=== PATIENT | female | born 1965 | race Caucasian/White ===

== ENCOUNTER → 2017-10-31 20:08 | Outpatient (REF) | payer BC, SELFPAY | LOC: LAB 20:08 | PROVIDERS: Visit Provider Nurse Practitioner Family | DX: J02.9 Acute pharyngitis, unspecified (principal) ==

== ENCOUNTER → 2019-07-02 16:52 | Outpatient (CLI) | payer BC, SELFPAY ==
--- NOTE | 2019-07-02 17:00 | MM_ITS ---
PROCEDURE: MM DIG SCREENING MAMM BI W/CAD CLINICAL INDICATION: SCREENING There is a history of breast cancer patient's paternal aunt diagnosed at age 40. COMPARISON: [facility] DIGITAL MAMM-SCREEN BILATERAL from 08/15/2011 [facility] DIG MAMM-SCREEN BRIAN from 01/18/2013 [facility] DIG MAMM-SCREEN BRIAN from 02/01/2014 TECHNIQUE: Standard CC and MLO images were obtained. Luther images were performed. FINDINGS: Moderate diffuse heterogenic fibroglandular densities are seen in both breasts somewhat lessening the sensitivity of mammography. Luther images were reviewed and there is no suspicious abnormality seen. There are no suspicious microcalcifications. IMPRESSION: Moderate heterogenic breast density with no suspicious lesions seen BI-RAD Category: 1 Negative FOLLOW-UP: (A letter has been sent to the patient regarding results of the study.) Dictated by: Dr. Eliud Wolfe MD 07/06/2019 14:[address] Eliud Wolfe MD in [place] 07/06/2019 14:17
== END ==
PROVIDERS: PCP Family Medicine; Visit Provider Family Medicine
DX: Z12.31 Encounter for screening mammogram for malignant neoplasm of breast (principal)
CPT/HCPCS: 77063; 77067

== ENCOUNTER → 2020-06-30 12:09 | Outpatient (CLI) | payer BC, SELFPAY ==
--- NOTE | 2020-06-30 12:14 | XR_ITS ---
PROCEDURE: XR CHEST 2V CLINICAL HISTORY: SYNCOPE, UNSPECIFIED SYNCOPE TYPE COMPARISON: No exams were available for comparison FINDINGS: The cardiomediastinal silhouette and pulmonary vascularity are within normal limits. The lungs are clear without infiltrates, suspicious nodules, or pleural effusions. No acute bony abnormalities. IMPRESSION: No acute findings. Dictated by: Farrukh Barr MD 06/30/2020 13:56 Farrukh Barr MD in [place] 06/30/2020 13:56
== END ==
PROVIDERS: PCP Family Medicine; Visit Provider Family Medicine
DX: R55 Syncope and collapse (principal)
CPT/HCPCS: 71046; 93225; 93226

== ENCOUNTER → 2020-07-03 15:36 | Outpatient (CLI) | payer BC, SELFPAY ==
--- NOTE | 2020-07-03 15:38 | MM_ITS ---
PROCEDURE: MM DIG SCREENING MAMM BI W/CAD Digital Breast Tomosynthesis Included CLINICAL INDICATION: SCREENING There is a history of breast cancer in the patient's paternal aunt diagnosed at age 40. COMPARISON: MG [facility] DIG MAMM-SCREEN BRIAN from 01/18/2013 MG [facility] DIG MAMM-SCREEN BRIAN from 02/01/2014 MG MM DIG SCREENING MAMM BI W/CAD from 07/02/2019 TECHNIQUE: Standard CC and MLO images and 3D Tomosynthesis was obtained. R2 CAD reviewed. FINDINGS: Prominent diffuse heterogenic fibroglandular densities are seen throughout both breasts. Luther images are most helpful in this type of dense breast parenchyma. Findings are bilateral and symmetrical. There is no suspicious lesion and no suspicious microcalcifications. IMPRESSION: Moderate diffuse breast density with no suspicious lesions seen BI-RAD Category: 1 Negative FOLLOW-UP: 1YR 1 Year Follow-up (A letter has been sent to the patient regarding results of the study.) Dictated by: Dr. Eliud Wolfe MD 07/06/2020 08:08 Dr. Eliud Wolfe MD in [place] 07/06/2020 08:08
== END ==
PROVIDERS: PCP Family Medicine; Visit Provider Family Medicine
DX: Z12.31 Encounter for screening mammogram for malignant neoplasm of breast (principal)
CPT/HCPCS: 77063; 77067

== ENCOUNTER → 2020-07-05 09:17 | Outpatient (CLI) | payer BC, SELFPAY ==
--- NOTE | 2020-07-05 09:25 | CA_ITS ---
APPROVED REPORT EXAM: Comprehensive 2D, Doppler, and color-flow Echocardiogram Paraoptometric: Lana Quan RVT Ht: 5 ft 4 in Wt: 135lbs BSA: 1.66 BP: 163/96 mmHg Indications: SYNCOPE 2D Dimensions LVOT 1.20 cm (M/F) 1.5-2.5 M-Mode Dimensions RVDd 1.68 cm (0.9-2.6) LA Diam 2.99 cm (1.9-4.0) LVDd 4.47 cm (3.5-5.7) Ao Diam 2.80 cm (2.0-3.7) LVDs 3.11 cm (3.5-5.7) IVSd 0.75 cm (0.6-1.1) PWd 0.96 cm (0.6-1.1) EF (Teich) 58.00% FS 30.40% EDV (Teich) 91.00 mL ESV (Teich) 38.20 mL LV Diastology E Decel Time 237.00 (160-240 msec) E/A Ratio 1.4 MED E' 10.80 (< 7 cm/sec) E'/MED E' Ratio 8.44 (>14) LAT E' 14.20 (<10 cm/sec) E/LAT E' Ratio 6.42 (>14) Aortic Valve AO VTI 43.00 (18-25 cm) Mitral Valve MV E Max Luis Carlos. 91.00 (40-130 cm/s) MV A Velocity 65.00 (40-130 cm/s) E/A Ratio 1.40 MV Decel. Time 237.00 (160-240 ms) MV PHT 69.00 ms Pulmonary Valve PV Peak Velocity 94.00 (50-150 cm/s) Tricuspid Valve TR P. Velocity 258.00 cm/s RAP Estimate 10.00 mmHg RVSP 36.50 mmHg Left Ventricle Left atrium is normal size, left ventricle is normal size, there is no concentric left ventricular hypertrophy, visually estimated ejection fraction 55% with no regional wall motion abnormality, diastolic parameters are within normal range. Right Ventricle Right atrium and right ventricle are normal size and contractility. Aortic Valve Aortic valve is minimally thickened and fibrosed, there is no aortic stenosis or aortic insufficiency. Mitral Valve Mitral valve is grossly normal. There is trace mitral regurgitation. Tricuspid Valve Tricuspid valve grossly normal, there is trace tricuspid regurgitation, tricuspid regurgitation jet velocity is inadequate for calculation of the right ventricular systolic pressure. Pulmonic Valve Pulmonic valve is poorly visualized. Great Vessels Aortic root is normal size. Pericardium No significant pericardial effusion noted. Conclusion 1. Normal left ventricular size, preserved left ventricular systolic function, visually estimated ejection fraction 55% with no regional wall motion abnormality, diastolic parameters are within normal range. 2. Trace mitral and tricuspid regurgitation. 3. No significant pericardial effusion noted. Electronically signed by : Jose Araujo, 07/05/2020 17:58:21
--- NOTE | 2020-07-05 10:04 | CT_ITS ---
PROCEDURE: CT HEAD/BRAIN WO/W CON Referring Doctor: Lennie Fuentes Patient Age:54Y CLINICAL INDICATION: SYNCOPE 1.5 weeks ago. Had headache for 1 week thereafter but has since resolved. No headache today. COMPARISON: No exams were available for comparison TECHNIQUE: Pre and postcontrast CT head performed. IV Contrast: 100ML Isovue 370 use for the postcontrast study Axial images were obtained both pre and postcontrast. All CT scans at the facility use one or more dose reduction, viz: automated exposure control, ma/kV adjustment per patient size (including targeted exams where dose is matched to indication, i.e. head), or iterative reconstruction technique. FINDINGS: No acute intracranial findings.. No abnormal areas of enhancement No territorial infarct . No intracranial hemorrhage. No hydrocephalus.The ventricles and basal cisterns appear clear and satisfactory. No mass or midline shift nor mass effect. No subdural or extra-axial fluid collection is evident. Posterior fossa unremarkable. The region of [id number] grossly unremarkable on this routine postcontrast CT Skull intact- calvarium unremarkable with no lesions. Scalp unremarkable the the. Nomastoid effusions. Mastoid air cells are well developed and clear. Middle ear clear. IAC's symmetric. Top of the maxillary sinuses clear. Sphenoid sinus clear. Of mild mucosal thickening at the anterior ethmoid air cells most evident on left with mild/moderate mucosal thickening extending to the inferior left frontal sinus. No air-fluid levels the the IMPRESSION: unremarkable CT of the brain pre and postcontrast. No mass lesion. No territorial infarct.. No extra-axial findings . No abnormal areas of enhancement the Incidental note mild chronic appearing changes paranasal sinuses,-with mild/moderate mucosal thickening left frontal sinus and ethmoid air cells (left > right ) Dictated by: Hill Armstrong MD 07/05/2020 12:48 Hill Armstrong MD in [place] 07/05/2020 12:48
== END ==
PROVIDERS: PCP Family Medicine; Visit Provider Family Medicine
DX: R55 Syncope and collapse (principal)
CPT/HCPCS: 70470; 93306; Q9967

== ENCOUNTER → 2020-07-24 20:27 | Outpatient (CLI) | payer BC, SELFPAY ==
[2020-07-24 21:27] LABS: Coronavirus 19 IgG Antibody Negative (Negative); Coronavirus 19 IgM Antibody Negative (Negative)
== END ==
PROVIDERS: PCP Family Medicine; Visit Provider Surgery
DX: Z01.818 Encounter for other preprocedural examination (principal); Z20.822 Contact with and (suspected) exposure to COVID-19; Z12.11 Encounter for screening for malignant neoplasm of colon
CPT/HCPCS: 86328

== ENCOUNTER 2020-07-25 06:27 | Day surgery (SDC) | payer BC, SELFPAY ==
[2020-07-20 13:17] VITALS: BMI 23.5
[2020-07-25 06:46] VITALS: BP 126/87; PULSE 89; RESP 18; TEMP 36.3; O2SAT 98
--- NOTE | 2020-07-25 07:18 | P.PN_ITS ---
[facility] Anesthesia Checklist - Patient Identification Patient Identification: Arm Band - Structural Data Admitted From: Home Planned Operative Procedure/s: colonoscopy Consent for Planned Operative Procedure(s) Verified: Yes Verified Documents: Surgical Consent, History and Physical - NPO Status Verified Time NPO: 00:00 - Additional verifications Anesthesia Reactions: No - Airway Assessment C-Spine Mobility Assessed: Yes (mp2) TMJ Mobility Assessed: Yes Dentition: Poor Dentition - Neurological Assessment Level of Consciousness: Awake, Alert - Anesthesia Plan Anesthesia Risk discussed: Yes Anesthesia Plan: Verified ASA Class: II Anesthesia Type: MAC [facility] History I have reviewed the patient's past medical history: Yes Medical History: Denies:: Cancer, Diabetes Mellitus Type 1, Diabetes Mellitus Type 2, Internal Pacemaker, MRSA, Seizures *Have you ever received a pneumonia vaccine?: No *Have you received a flu vaccine this season?: No Anesthesia experience/problems:: nac Other Surgeries: Yes: , Other. No: Pacemaker Amputation: No Fractures: Yes (ankle) - *Social History Last grade of school completed: Some college Smoking Status: Current every day smoker Tobacco Type: smokeless tobacco # Packs/Day (cigarettes): 1 Alcohol Intake: current Alcohol Intake Frequency:: a few times a month Substance Use Type: marijuana *Occupational Status:: employed *Travel in the last 8 weeks: None Family Hx:: Cancer, Diabetes, Hypertension
[2020-07-25 07:30] VITALS: O2SAT 97
[2020-07-25 07:51] VITALS: BP 52/51; PULSE 70; RESP 18; TEMP 36.3; O2SAT 94
--- NOTE | 2020-07-25 07:51 | HMH.SCOPE ---
- Procedure: Date: 07/25/20 Patient Date of :: 1965 Procedure Performed:: Total colonoscopy to terminal ileum with polypectomy of possible polyp using cold cutting snare Indications:: 54-year-old female referred by Johny Fuentes MD for initial screening colonoscopy Performing Provider:: Teodoro Elliott MD Referring Provider:: Johny Fuentes MD Sedation:: MAC sedation Procedure:: Consent was obtained and patient was taken to endoscopy procedure room. She was positioned in a lateral decubitus position. Adequate intravenous sedation was achieved with anesthesia titration of propofol. Digital examination was performed which was unremarkable. Variable stiffness Olympus colonoscope was inserted via the anus. Was advanced to the cecum with some minor difficulty due to redundancy of the sigmoid colon. Colonic preparation was good. Ileocecal valve and appendiceal orifice were clearly identified. Colonoscope was advanced a short distance into the terminal ileum which appeared grossly normal. Colonoscope was withdrawn through the colon with careful surveillance. She had a couple of very small rare sigmoid diverticuli. At the rectosigmoid region there was a possible polyp as an area of prominence mucosal tissue which was removed in its entirety with cold cutting snare and sent as rectosigmoid polyp. Retroflexion within the rectum revealed no evidence of any pathologic internal hemorrhoids. Colonoscope was withdrawn. Findings:: Very rare minimal small diverticuli Possible rectosigmoid polyp Recommendations:: Repeat colonoscopy 5 to 10 years Complications:: None immediately apparent Estimated blood obtained (mL): 1
[2020-07-25 08:01] VITALS: BP 96/56; PULSE 68; RESP 16; TEMP 36.3; O2SAT 100
[2020-07-25 08:11] VITALS: BP 102/66; PULSE 66; RESP 18; TEMP 36.3; O2SAT 100
[2020-07-25 08:21] VITALS: BP 106/58; PULSE 68; RESP 16; TEMP 36.4; O2SAT 100
== END 2020-07-25 08:21 | disposition home or self-care (01) ==
PROVIDERS: PCP Family Medicine; Visit Provider Surgery
PROC: 0DJD8ZZ Inspection of Lower Intestinal Tract, Via Natural or Artificial Opening Endoscopic (ICD-10-PCS; CPT 45385; principal; 2020-07-25 07:30)
DX: Z12.11 Encounter for screening for malignant neoplasm of colon (principal); K57.30 Diverticulosis of large intestine without perforation or abscess without bleeding; K63.9 Disease of intestine, unspecified; Z72.0 Tobacco use; F12.90 Cannabis use, unspecified, uncomplicated
CPT/HCPCS: 45385

== ENCOUNTER 2020-10-12 20:48 | Emergency (ER) | payer BC, SELFPAY ==
[2020-10-12 21:09] VITALS: BP 129/69; PULSE 121; RESP 18; TEMP 37.1; O2SAT 98; BMI 22.8
--- NOTE | 2020-10-12 21:17 | CT_ITS ---
PROCEDURE INFORMATION: Exam: CT Head Without Contrast Exam date and time: 10/12/2020 9:17 PM Age: 55 years old Clinical indication: Other: Unreactive RT pupil; Additional info: Non-reactive right pupil. TECHNIQUE: Imaging protocol: Computed tomography of the head without contrast. Radiation optimization: All CT scans at this facility use at least one of these dose optimization techniques: automated exposure control; mA and/or kV adjustment per patient size (includes targeted exams where dose is matched to clinical indication); or iterative reconstruction. COMPARISON: CT HEAD/BRAIN WO/W CON 07/05/2020 11:47 AM FINDINGS: Brain: The schneider-white matter differentiation and basilar cisterns are maintained. There is no mass, mass effect or midline shift. No acute intracranial hemorrhage is identified. Cerebral ventricles: No intraventricular hemorrhage or mass. Bones/joints: Osseous structures are intact. No osteolytic or blastic bone lesions appreciated. Paranasal sinuses: Visualized paranasal sinuses are clear. Mastoid air cells: Visualized mastoid air cells are well aerated and clear. Orbital cavity: The globes appear unremarkable and there is no retro-orbital abnormality. Soft tissues: No focal scalp swelling or hematoma. IMPRESSION: 1. No acute intracranial process identified.
--- NOTE | 2020-10-12 21:50 | HMH.EDGENADL ---
ED Disposition Clinical Impression: Eye abnormalities, Dilated pupil Disposition: Home, Self-Care Condition on Discharge: Good Referrals: Lennie Fuentes MD [Primary Care Provider] - - Critical Care Critical Care Time: No Attestation: On 10/12/20, the high probability of a clinically significant, sudden or life threatening deterioration of the following system(s) required my full and direct attention, intervention and personal management. The time I documented below is in addition to time spent performing reported procedures but includes the following listed in this critical care notation. Medical Decision Making - Medical Records Medical records reviewed: Yes: I reviewed the patient's medical records. - Giuseppe Inquiry Pt receiving controlled substance: No Vital Signs: 10/12/20 21:09 10/12/20 22:31 Temperature 98.7 F 97.6 F Temperature Source Oral Oral Pulse Rate 80 Pulse Rate [Right Brachial] 121 H Respiratory Rate 18 17 Blood Pressure 127/64 Blood Pressure [Right Arm] 129/69 Blood Pressure Mean [Right Arm] 89 Blood Pressure Source Automatic Cuff Blood Pressure Source [Right Arm] Automatic Cuff Blood Pressure Position [Right Arm] Sitting 02 Sat by Pulse Oximetry 98 Oxygen Delivery Method Room Air Room Air Medical Decision Narrative: The patient is a 55 year old female who presents to the ED with eye concern. She is awake, alert, stable. She is neurologically intact other than her right pupil dilation.She complains of mild headache but no eye pain or trauma. CT head is negative. Low suspicion for stroke or intracranial pathology based on history or exam. Eyedrops that she used can cause dilation - thats likely the cause. On reevaluation her symptoms are resolving. Will discharge home with return precautions. General Adult HPI - General Chief complaint: Eye Problems Stated complaint: red/blood in eye pupils different sizes Time Seen by Provider: 10/12/20 21:10 Mode of Arrival: Family Vehicle Limitations: No Limitations Description of Symptoms (Recalled from ER Triage Doc. by RN): right eye pupil non reactive to light. pt states she noticed a blood area to the outer sclera without trauma or injury this morning, and that her vision is slightly altered almost as though she has her eye dilated. pupil measures 3mm. left eye is reactive. NIH 1. - History of Present Illness HPI narrative: The patient is a 55 year old female who presents to the ED with right pupil dilation and subconjunctival hemorrhage. Patient states she woke up with subconjunctival hemorrhage. She denies vomiting or coughing or trauma. She did not have pain. She used [facility] [employer] for red eyes drops in the afternoon and around 9:00 pm noticed her right pupil was dilated and nonreactive. She came to the ED after this. She now has a headache and some blurry vision but if she closes one eye it is not blurry. No trauma or other injury. - Related Data Home Medications Medication Instructions Recorded Confirmed No Known Home Medications 07/20/20 07/20/20 Allergies Allergy/AdvReac Type Severity Reaction Status Date / Time Sulfa (Sulfonamide Allergy Verified 07/20/20 13:15 Antibiotics) [facility] History - Hepatitis A Screen Drug use history?: No High risk sexual behaviors?: No History of sexually transmitted infection?: No Currently employed?: No Childcare worker?: No Do you have indoor plumbing?: Yes Do you have electricity?: Yes Attestation statement:: This patient has been screened for Hepatitis A risk factors. Medical History: Denies:: Cancer, Diabetes Mellitus Type 1, Diabetes Mellitus Type 2, Internal Pacemaker, MRSA, Seizures Other Surgeries: Yes: No Previous Surgery, , Other. No: Pacemaker Amputation: No Fractures: Yes (ankle) - Social History Smoking Status: Current every day smoker Tobacco Type: smokeless tobacco # Packs/Day (cigarettes): 1 Alcohol Intake: current Alcohol Intake Scott
[2020-10-12 22:31] VITALS: BP 127/64; PULSE 80; RESP 17; TEMP 36.4; O2SAT 98
== END 2020-10-12 23:00 | disposition home or self-care (01) ==
LOC: UTC 20:51 → ER 21:02
PROVIDERS: Emergency Provider Emergency Medicine; PCP Family Medicine
DX: H11.31 Conjunctival hemorrhage, right eye (principal); F17.290 Nicotine dependence, other tobacco product, uncomplicated; Z88.2 Allergy status to sulfonamides
CPT/HCPCS: 70450; 99281

== ENCOUNTER 2021-01-10 10:48 | Emergency (ER) | payer BC, SELFPAY ==
[2021-01-10 10:48] VITALS: BP 128/77; PULSE 88; RESP 21; TEMP 36.8; O2SAT 100; BMI 24.9
--- NOTE | 2021-01-10 11:54 | HMH.EDUTC ---
[facility] [place] Impression: Exposure to COVID-19 virus Disposition: Home, Self-Care Condition on Discharge: Good Instructions: DI for COVID-19 (Suspected or Confirmed ), Preventing the Spread of Coronavirus Discharge Instructions Additional Instructions: Drink plenty of fluids. Take tylenol for pain or fever. Return if you begin to have difficulty breathing. Follow up with your regular doctor. GO TO THE ER FOR ANY WORSENING SYMPTOMS Referrals: Lennie Fuentes MD [Primary Care Provider] - Time of Disposition: 11:55 Medical Decision Making - Medical Records Medical records reviewed: No: I reviewed the patient's medical records. - Giuseppe Inquiry Pt receiving controlled substance: No Vital Signs: 01/10/21 10:48 01/10/21 11:59 Temperature 98.2 F 98.2 F Temperature Source Oral Pulse Rate 88 Pulse Rate [Left Radial] 88 Respiratory Rate 21 21 Blood Pressure 128/77 Blood Pressure [Right Arm] 128/77 Blood Pressure Mean [Right Arm] 94 Blood Pressure Source [Right Arm] Automatic Cuff Blood Pressure Position [Right Arm] Sitting 02 Sat by Pulse Oximetry 100 Oxygen Delivery Method Room Air [facility] [place] - General Stated complaint: Covid test Time Seen by Provider: 01/10/21 11:00 Mode of Arrival: Ambulatory Source of Information: Patient Limitations: No Limitations Description of Symptoms (Recalled from Triage Doc. by RN): covid test, no symptoms, exposure HEENT Symptoms (Recalled from RN notes): No Resp Symptoms (Recalled from RN notes): No Skin Symptoms (Recalled from RN notes): No MS Symptoms (Recalled from RN notes): No Functional Status (Recalled from RN notes): wnl - History of Present Illness Provider Complaint: She is here needing to be tested for covid. She was exposed 4 days ago approx. She denies any symptoms. - Related Data Home Medications Medication Instructions Recorded Confirmed No Known Home Medications 07/20/20 07/20/20 Allergies Allergy/AdvReac Type Severity Reaction Status Date / Time Sulfa (Sulfonamide Allergy Verified 07/20/20 13:15 Antibiotics) - Worker's Comp Is this a Worker's Comp case?: No [facility] History - Hepatitis A Screen Drug use history?: No High risk sexual behaviors?: No History of sexually transmitted infection?: No Currently employed?: No Childcare worker?: No Do you have indoor plumbing?: Yes Do you have electricity?: Yes Attestation statement:: This patient has been screened for Hepatitis A risk factors. I have reviewed the patient's past medical history: Yes Medical History: Denies:: Cancer, Diabetes Mellitus Type 1, Diabetes Mellitus Type 2, Internal Pacemaker, MRSA, Seizures Other Surgeries: Yes: No Previous Surgery, , Other. No: Pacemaker Amputation: No Fractures: Yes (ankle) - Social History Smoking Status: Current every day smoker Tobacco Type: smokeless tobacco # Packs/Day (cigarettes): 1 Alcohol Intake: current Alcohol Intake Frequency:: a few times a month Substance Use Type: marijuana Occupational Status: employed Family Hx:: Cancer, Diabetes, Hypertension ROS Obtained: Yes All systems reviewed & no additional complaints - Constitutional Constitutional: Reports system reviewed and no additional complaints, except as docu - Eyes Eyes: Reports system reviewed and no additional complaints, except as docu - ENT Ears, Nose, Mouth, and Throat: Reports system reviewed and no additional complaints, except as docu - Cardiovascular Cardiovascular: Reports system reviewed and no additional complaints, except as docu - Respiratory Respiratory: Reports system reviewed and no additional complaints, except as docu - Gastrointestinal Gastrointestingal: Reports: system reviewed and no additional complaints, except as docu Physical Exam - General General appearance: alert, in no apparent distress - Head Head exam: atraumatic, normocephalic, normal inspection - Eye Ey
[2021-01-10 11:59] VITALS: BP 128/77; PULSE 88; RESP 21; TEMP 36.8; O2SAT 100
== END 2021-01-10 12:00 | disposition home or self-care (01) ==
PROVIDERS: Emergency Provider Nurse Practitioner Family; PCP Family Medicine
DX: Z20.822 Contact with and (suspected) exposure to COVID-19 (principal); Z88.2 Allergy status to sulfonamides
CPT/HCPCS: 99202; G0463; U0003

== ENCOUNTER 2021-01-16 16:05 | Emergency (ER) | payer BC, SELFPAY ==
[2021-01-16 16:45] VITALS: BP 119/60; PULSE 56; RESP 20; TEMP 36.7; O2SAT 99; BMI 25.7
--- NOTE | 2021-01-16 17:22 | HMH.EDUTC ---
[facility] [place] Clinical Impression: Exposure to COVID-19 virus Disposition: Home, Self-Care Condition on Discharge: Good Instructions: Preventing the Spread of Coronavirus Discharge Instructions Additional Instructions: Drink plenty of fluids. Take tylenol for pain or fever. Return if you begin to have difficulty breathing. Follow up with your regular doctor. GO TO THE ER FOR ANY WORSENING SYMPTOMS Quarantine until you know the results of your covid-19 test. If it is positive, the health department should call you and give you further instructions about your length of Quarantine and other thing. Referrals: Lennie Fuentes MD [Primary Care Provider] - Time of Disposition: 17:23 Medical Decision Making - Medical Records Medical records reviewed: No: I reviewed the patient's medical records. - Giuseppe Inquiry Pt receiving controlled substance: No Vital Signs: 01/16/21 16:45 01/16/21 17:30 Temperature 98.1 F 98.1 F Temperature Source Temporal Artery Scan Pulse Rate 56 L Pulse Rate [Right Brachial] 56 L Respiratory Rate 20 20 Blood Pressure 119/60 Blood Pressure [Right Arm] 119/60 Blood Pressure Mean [Right Arm] 79 Blood Pressure Source [Right Arm] Automatic Cuff Blood Pressure Position [Right Arm] Sitting 02 Sat by Pulse Oximetry 99 Oxygen Delivery Method Room Air Orders (Tests/Meds): ORDERS Category Date Time Status Covid-19 Nasal PCR ([facility]) Routine Lab 01/16/21 16:55 [place] [facility] [place] - General Stated complaint: covid test Time Seen by Provider: 01/16/21 17:00 Mode of Arrival: Ambulatory Source of Information: Patient Limitations: No Limitations Description of Symptoms (Recalled from Triage Doc. by RN): COVID TEST D/T EXPOSURE. DENIES SYMPTOMS HEENT Symptoms (Recalled from RN notes): No Resp Symptoms (Recalled from RN notes): No Skin Symptoms (Recalled from RN notes): No MS Symptoms (Recalled from RN notes): No Functional Status (Recalled from RN notes): WNL - History of Present Illness Provider Complaint: She states that she was exposed to covid last week. She denies any symptoms. - Related Data Home Medications Medication Instructions Recorded Confirmed No Known Home Medications 07/20/20 07/20/20 Allergies Allergy/AdvReac Type Severity Reaction Status Date / Time Sulfa (Sulfonamide Allergy Verified 07/20/20 13:15 Antibiotics) - Worker's Comp Is this a Worker's Comp case?: No [facility] History - Hepatitis A Screen Drug use history?: No High risk sexual behaviors?: No History of sexually transmitted infection?: No Currently employed?: No Childcare worker?: No Do you have indoor plumbing?: Yes Do you have electricity?: Yes Attestation statement:: This patient has been screened for Hepatitis A risk factors. I have reviewed the patient's past medical history: Yes Medical History: Denies:: Cancer, Diabetes Mellitus Type 1, Diabetes Mellitus Type 2, Internal Pacemaker, MRSA, Seizures Other Surgeries: Yes: No Previous Surgery, , Other. No: Pacemaker Amputation: No Fractures: Yes (ankle) - Social History Smoking Status: Current every day smoker Tobacco Type: smokeless tobacco # Packs/Day (cigarettes): 1 Alcohol Intake: current Alcohol Intake Frequency:: a few times a month Substance Use Type: marijuana Occupational Status: employed Family Hx:: Cancer, Diabetes, Hypertension ROS Obtained: Yes All systems reviewed & no additional complaints - Constitutional Constitutional: Reports system reviewed and no additional complaints, except as docu - Eyes Eyes: Reports system reviewed and no additional complaints, except as docu - ENT Ears, Nose, Mouth, and Throat: Reports system reviewed and no additional complaints, except as docu - Cardiovascular Cardiovascular: Reports system reviewed and no additional complaints, except as docu - Respiratory Respiratory: Reports system reviewed and no additional complain
[2021-01-16 17:30] VITALS: BP 119/60; PULSE 56; RESP 20; TEMP 36.7; O2SAT 99
== END 2021-01-16 17:34 | disposition home or self-care (01) ==
PROVIDERS: Emergency Provider Nurse Practitioner Family; PCP Family Medicine
DX: Z20.822 Contact with and (suspected) exposure to COVID-19 (principal); F17.210 Nicotine dependence, cigarettes, uncomplicated
CPT/HCPCS: 99202; G0463; U0003

== ENCOUNTER 2021-06-24 18:27 | Emergency (ER) | payer BC, SELFPAY ==
[2021-06-24 18:47] VITALS: BP 142/88; PULSE 82; RESP 18; TEMP 36.9; O2SAT 97; BMI 25.7
[2021-06-24 19:02] LABS: UTC Influenza A Antigen Negative (Negative); UTC Influenza B Antigen Negative (Negative)
--- NOTE | 2021-06-24 19:11 | HMH.EDUTC ---
[facility] – [place] Clinical Impression: Viral syndrome Disposition: Home, Self-Care Condition on Discharge: Good Instructions: DI for Viral Syndrome, DI for COVID-19 (Suspected or Confirmed ), Preventing the Spread of Coronavirus Discharge Instructions Additional Instructions: Drink plenty of fluids. Take tylenol or ibuprofen for pain or fever. Take the medications as directed. Follow up with your regular doctor. GO TO THE ER FOR ANY WORSENING SYMPTOMS Quarantine until you know the results of your covid-19 test. Notify your school or workplace of your results and follow their instructions regarding return to work/school. he cough medication (promethazine dm) will make you drowsy, so don't drive or operate heavy machinery after taking it. Prescriptions: Albuterol Sulfate [Albuterol Sulfate Hfa] 2 puffs IH Q6HP PRN 30 Days #1 each PRN Reason: Shortness Of Breath Transmission Status: Received by [facility] Promethazine/Dextromethorphan [Promethazine-Dm Syrup] 5 ml PO Q6HP PRN #240 ml PRN Reason: Cough Transmission Status: Received by [facility] methylPREDNISolone [Medrol] 4 mg PO DIRECTED 6 Days #21 packet Transmission Status: Received by [facility] Azithromycin [Z-Nikos 250mg Tab*] 250 mg PO UD DOSE PK #6 tab Transmission Status: Received by [facility] Referrals: Lennie Fuentes MD [Primary Care Provider] - Forms: Work/School Release Time of Disposition: 19:25 Medical Decision Making - Medical Records Medical records reviewed: No: I reviewed the patient's medical records. - Giuseppe Inquiry Pt receiving controlled substance: No Vital Signs: 06/24/21 18:47 06/24/21 19:27 Temperature 98.4 F 98.4 F Temperature Source Oral Pulse Rate 82 Pulse Rate [Left] 82 Respiratory Rate 18 18 Blood Pressure 142/88 H Blood Pressure [Right Arm] 142/88 H Blood Pressure Mean [Right Arm] 106 02 Sat by Pulse Oximetry 97 - Lab Data Lab results reviewed: Yes: I reviewed the patient's lab results. Lab Results 06/24/21 18:47: Group A Strep Rapid Negative 06/24/21 18:52: Influenza Type A Ag Negative, Influenza Type B Ag Negative Orders (Tests/Meds): ORDERS Category Date Time Status Covid-19 Nasal PCR ([facility]) Routine Lab 06/24/21 18:47 Received Strep Screen Confirmation Stat Micro 06/24/21 18:47 Received [facility] UTC HPI - General Stated complaint: sore throat nausea abd pain body aches Time Seen by Provider: 06/24/21 19:11 Mode of Arrival: Ambulatory Source of Information: Patient Limitations: No Limitations Description of Symptoms (Recalled from Triage Doc. by RN): pt c/o a sore throat, chills body aches, stomach ache, and mid back pain. HEENT Symptoms (Recalled from RN notes): Yes Resp Symptoms (Recalled from RN notes): No Skin Symptoms (Recalled from RN notes): No MS Symptoms (Recalled from RN notes): Yes Functional Status (Recalled from RN notes): wnl - History of Present Illness Provider Complaint: She states that for the past 2 days she has had body aches, chest congestion, head ache and fever. - Related Data Previous Rx's Medication Instructions Recorded Albuterol Sulfate [Albuterol 2 puffs IH Q6HP PRN 30 Days #1 each 06/24/21 Sulfate Hfa] Azithromycin [Z-Nikos 250mg Tab*] 250 mg PO UD DOSE PK #6 tab 06/24/21 Promethazine/Dextromethorphan 5 ml PO Q6HP PRN #240 ml 06/24/21 [Promethazine-Dm Syrup] methylPREDNISolone [Medrol] 4 mg PO DIRECTED 6 Days #21 06/24/21 packet Allergies Allergy/AdvReac Type Severity Reaction Status Date / Time Sulfa (Sulfonamide Allergy Verified 07/20/20 13:15 Antibiotics) - Worker's Comp Is this a Worker's Comp case?: No [facility] History - Hepatitis A Screen Drug use history?: No High risk sexual behaviors?: No History of sexually transmitted infection?: No Currently employed?: No Childcare worker?: No Do you have indoor plumbing?: Yes Do you have electricity?: Yes At
[2021-06-24 19:18] LABS: Strep Scrn Group A (Rapid) Negative (Negative)
[2021-06-24 19:27] VITALS: BP 142/88; PULSE 82; RESP 18; TEMP 36.9
== END 2021-06-24 19:33 | disposition home or self-care (01) ==
PROVIDERS: Emergency Provider Nurse Practitioner Family; PCP Family Medicine
DX: U07.1 COVID-19 (principal); B34.9 Viral infection, unspecified; F17.210 Nicotine dependence, cigarettes, uncomplicated
CPT/HCPCS: 87430; 87804; 99203; C9803; G0463; U0003; U0005

== ENCOUNTER 2021-12-27 11:38 | Emergency (ER) | payer BC, SELFPAY ==
[2021-12-27 11:38] VITALS: BP 130/78; PULSE 66; RESP 17; TEMP 36.4; O2SAT 99; BMI 26.9
--- NOTE | 2021-12-27 11:45 | HMH.EDUTC ---
[facility] – [place] Disposition Clinical Impression: COVID-19 Disposition: Home, Self-Care Condition on Discharge: Good Instructions: DI for COVID-19 (Suspected or Confirmed ), Preventing the Spread of Coronavirus Discharge Instructions Additional Instructions: Drink plenty of fluids. Take tylenol or ibuprofen for pain or fever. Take the medications as directed. Follow up with your regular doctor. GO TO THE ER FOR ANY WORSENING SYMPTOMS Prescriptions: Albuterol Sulfate [Albuterol Sulfate Hfa] 2 puffs IH Q6HP PRN 30 Days #1 each PRN Reason: Shortness Of Breath Transmission Status: Received by [facility] Benzonatate [Benzonatate 100mg cap] 100 mg PO TIDP PRN #30 cap PRN Reason: Cough Transmission Status: Received by [facility] methylPREDNISolone [Medrol] 4 mg PO DIRECTED 6 Days #21 packet Transmission Status: Received by [facility] Referrals: Lennie Fuentes MD [Primary Care Provider] - Forms: Work/School Release Time of Disposition: 12:26 Medical Decision Making - Medical Records Medical records reviewed: No: I reviewed the patient's medical records. - Giuseppe Inquiry Pt receiving controlled substance: No Vital Signs: 12/27/21 11:38 12/27/21 12:30 Temperature 97.6 F 97.6 F Temperature Source Oral Oral Pulse Rate 66 Pulse Rate [Radial] 66 Respiratory Rate 17 18 Blood Pressure 130/78 Blood Pressure [Left Arm] 130/78 Blood Pressure Mean [Left Arm] 95 Blood Pressure Source [Left Arm] Automatic Cuff 02 Sat by Pulse Oximetry 99 Oxygen Delivery Method Room Air Room Air Orders (Tests/Meds): ORDERS Category Date Time Status Covid-19 Nasal PCR ([facility]) Routine Lab 12/27/21 11:49 Received [facility] [place] HPI - General Stated complaint: covid test Time Seen by Provider: 12/27/21 11:45 - History of Present Illness Provider Complaint: She is here to follow up with covid-19. she was disgnosed with it 4 days ago. She states that she is feeling better but she is still unable to return to work because she has chills, body aches and chest congestion. she denies any documented fever in the past 2 days. - Related Data Previous Rx's Medication Instructions Recorded Albuterol Sulfate [Albuterol 2 puffs IH Q6HP PRN 30 Days #1 each 06/24/21 Sulfate Hfa] Azithromycin [Z-Nikos 250mg Tab*] 250 mg PO UD DOSE PK #6 tab 06/24/21 Promethazine/Dextromethorphan 5 ml PO Q6HP PRN #240 ml 06/24/21 [Promethazine-Dm Syrup] methylPREDNISolone [Medrol] 4 mg PO DIRECTED 6 Days #21 06/24/21 packet Albuterol Sulfate [Albuterol 2 puffs IH Q6HP PRN 30 Days #1 each 12/27/21 Sulfate Hfa] Benzonatate [Benzonatate 100mg 100 mg PO TIDP PRN #30 cap 12/27/21 cap] methylPREDNISolone [Medrol] 4 mg PO DIRECTED 6 Days #21 12/27/21 packet Allergies Allergy/AdvReac Type Severity Reaction Status Date / Time Sulfa (Sulfonamide Allergy Verified 07/20/20 13:15 Antibiotics) [facility] History - Hepatitis A Screen Attestation statement:: This patient has been screened for Hepatitis A risk factors. I have reviewed the patient's past medical history: Yes Medical History: Denies:: Cancer, Diabetes Mellitus Type 1, Diabetes Mellitus Type 2, Internal Pacemaker, MRSA, Seizures Other Surgeries: Yes: No Previous Surgery, , Other. No: Pacemaker Amputation: No Fractures: Yes (ankle) - Social History Smoking Status: Current every day smoker Tobacco Type: smokeless tobacco # Packs/Day (cigarettes): 1 Alcohol Intake: current Alcohol Intake Frequency:: a few times a month Substance Use Type: marijuana Occupational Status: employed Family Hx:: Cancer, Diabetes, Hypertension ROS Obtained: Yes All systems reviewed & no additional complaints - Constitutional Constitutional: Reports chills, Reports fever(s), Reports poor appetite, Reports malaise - Eyes Eyes: Denies eye discharge - ENT Ears, Nose, Mouth, and Throat: Reports as per HPI - Cardiovascular C
[2021-12-27 12:30] VITALS: BP 130/78; PULSE 66; RESP 18; TEMP 36.4; O2SAT 99
== END 2021-12-27 12:30 | disposition home or self-care (01) ==
PROVIDERS: Emergency Provider Nurse Practitioner Family; PCP Family Medicine
DX: U07.1 COVID-19 (principal)
CPT/HCPCS: 99212; C9803; G0463; U0003; U0005

== ENCOUNTER → 2022-02-22 15:32 | Outpatient (CLI) | payer BC, SELFPAY ==
--- NOTE | 2022-02-22 15:44 | MM_ITS ---
PROCEDURE INFORMATION: Exam: MG Bilateral Screening 3D Mammography Exam date and time: 02/22/2022 3:34 PM Age: 56 years old Clinical indication: Screening examination. A paternal aunt had breast cancer at age 40 and a paternal cousin had breast cancer at age 53. TECHNIQUE: Imaging protocol: Bilateral Screening tomosynthesis and 2D mammography including computer-aided detection (CAD) when performed. COMPARISON: 1. MG MM DIG SCREENING MAMM BI W/CAD 07/03/2020 3:51 PM 2. MG MM DIG SCREENING MAMM BI W/CAD 07/02/2019 4:59 PM 3. MG DMSB DIG MAMM-SCREEN BRIAN 02/01/2014 4:02 PM 4. MG DMSB DIG MAMM-SCREEN BRIAN 01/18/2013 8:36 AM FINDINGS: MAMMOGRAPHY: Breast composition: The breasts are heterogeneously dense, which may obscure small masses. Mass: None. Architectural distortion: None. Calcifications: No suspicious calcifications. Asymmetric density: None. Skin thickening: None. Axillary adenopathy: None. IMPRESSION: No mammographic evidence of malignancy. Annual screening is recommended unless otherwise clinically indicated. ASSESSMENT: BI-RADS Category 1: Negative
--- NOTE | 2022-02-22 15:55 | XR_ITS ---
FINAL REPORT CLINICAL HISTORY: left knee pain FINDINGS: 3 views of the left knee were obtained. There is no acute fracture or dislocation. The joint spaces are intact. There is no soft tissue abnormality. IMPRESSION: No acute process. Reviewed, Interpreted and Dictated by Osei Meng MD Transcribed by Binu Sanchez Authenticated and [facility]
== END ==
PROVIDERS: PCP Family Medicine; Visit Provider Family Medicine
DX: Z12.31 Encounter for screening mammogram for malignant neoplasm of breast (principal); N60.19 Diffuse cystic mastopathy of unspecified breast; M25.562 Pain in left knee
CPT/HCPCS: 73562; 77063; 77067

== ENCOUNTER → 2023-05-13 16:26 | Outpatient (CLI) | payer BC, SELFPAY ==
[2023-05-13 19:00] LABS: Alanine Aminotransferase 24 U/L (12-78); Albumin Level 4.4 g/dl (3.5-5.0); Albumin/Globulin Ratio 1.4 (1.1-1.8); Alkaline Phosphatase 75 U/L (38-126); Anion Gap 11.1 mEq/L (5-15); Aspartate Amino Transferase 28 U/L (14-36); Bilirubin,Total 0.3 mg/dl (0.2-1.3); Blood Urea Nitrogen 13 mg/dl (7-17); Carbon Dioxide 23 mmol/L (22.0-30.0); Chloride 106 mmol/L (98-107); Chol/HDL Ratio 3.5 (1-3.5); Cholesterol 246 mg/dl (140-200); Estimated Glomerular Filt Rate 87 ml/min (>60); GFR (African American) 105 ML/MIN (>60); Globulin 3.1 g/dL (1.3-3.2); Glucose 79 mg/dl (74-100); HDL Cholesterol 70 mg/dl (40-60); Potassium 4.1 mmoL/L (3.5-5.1); Sodium 136 mmol/L (136-145); Total Protein,Serum 7.5 g/dl (6.3-8.2); Triglycerides 81 mg/dl (30-150); VLDL Cholesterol 16 mg/dL (0-40)
[2023-05-13 19:11] LABS: Direct LDL Cholesterol 132.57 mg/dL (100-129)
[2023-05-13 19:19] LABS: 25-OH Vitamin D, Total 36.3 ng/mL (30-100)
[2023-05-13 19:31] LABS: Thyroid Stimulating Hormone 0.96 uIU/mL (0.465-4.68)
[2023-05-13 19:50] LABS: Vitamin B12 > 1000 pg/mL (239-931)
== END ==
LOC: LAB 16:27
PROVIDERS: PCP Family Medicine; Visit Provider Physician Assistant
DX: R53.83 Other fatigue (principal); Z13.220 Encounter for screening for lipoid disorders; E78.00 Pure hypercholesterolemia, unspecified; R79.89 Other specified abnormal findings of blood chemistry
CPT/HCPCS: 36415; 80053; 80061; 82306; 82607; 84443

== ENCOUNTER 2024-05-12 08:16 | Emergency (ER) | payer BC, SELFPAY ==
[2024-05-12 08:55] VITALS: BP 148/80; PULSE 65; RESP 17; TEMP 36.8; O2SAT 98; BMI 29.0
--- NOTE | 2024-05-12 09:07 | ED_ITS ---
Discharge Plan Disposition Patient Disposition: Home, Self-Care Condition: Good Prescriptions Prescriptions: New methylprednisolone 4 mg Tablets,Dose Pack 4 mg PO DIRECTED 6 Days Qty: 21 0RF Rx Instructions: Take 1 pack as directed for 6 days betamethasone dipropionate 0.05 % cream 1 applic topical BID PRN (Reason: skin irritation) Qty: 15 0RF Referrals Follow up/Referrals: India Bishop MD [Referring] - See instructions Lennie Fuentes MD [Primary Care Provider] - See instructions Activity Restrictions/Add. Instructions Additional Instructions/Restrictions: Don't put the topical steroids (betamethasone) on your face or your groin. Follow up with your regular doctor. I put in a referral to the plate glass grinder (Dr. Bishop), if you continue to have these symptoms you should follow up with her. Her office phone number will be on this paperwork. GO TO THE ER FOR ANY WORSENING SYMPTOMS OR CONCERNS Clinical Impressions Clinical Impression: Atopic dermatitis Instructions Patient Instructions: DI for Atopic Dermatitis-Adult, Methylprednisolone, Betamethasone Topical Print Language Print Language: Welsh Discharge ED Provider: Calderon Thakkar [facility] General Stated complaint: rash on both legs Mode of Arrival: Ambulatory Source of Information: Patient Limitations: No Limitations Time Seen by Provider: 05/12/24 09:07 Description of Symptoms (Recalled from Triage Doc. by RN): PATIENT C/O RASH TO BACK OF BILATERAL LEGS FOR OVER 2 WEEKS HEENT Symptoms (Recalled from RN notes): No Resp Symptoms (Recalled from RN notes): No Skin Symptoms (Recalled from RN notes): Yes MS Symptoms (Recalled from RN notes): No Functional Status (Recalled from RN notes): WNL Related Data Previous Rx's ?Medication ?Instructions ?Recorded betamethasone dipropionate 0.05 % 1 applic topical BID PRN skin 05/12/24 topical cream irritation #15 grams methylprednisolone 4 mg tablets in 4 mg PO DIRECTED 6 days #21 tabs 05/12/24 a dose pack Allergies Allergy/AdvReac Type Severity Reaction Status Date / Time Sulfa (Sulfonamide Allergy Verified 07/20/20 13:15 Antibiotics) Worker's Comp Is this a Worker's Comp case?: No [facility] Disclaimer: The information contained in this section may have been updated after the patient was seen, as this information can be updated by other users. Social History Smoking Status: Current every day smoker tobacco type: smokeless tobacco alcohol intake: current alcohol intake frequency: a few times a month substance use type: marijuana current occupational status: employed Travel in the last 8 weeks: None caffeine: Yes ROS Obtained: Yes All systems reviewed & no additional complaints except as documented Constitutional Constitutional: Denies chills and Denies fever(s) Eyes Eyes: Denies eye discharge ENT Ears, Nose, Mouth, and Throat: Denies dizziness, Denies otalgia and Denies sore throat Cardiovascular Cardiovascular: Denies chest pain Respiratory Respiratory: Denies shortness of breath, Denies chest congestion, Denies cough, Denies stridor and Denies wheezing Gastrointestinal Gastrointestingal: Denies nausea or vomiting Musculoskeletal Musculoskeletal: Reports system reviewed and no additional complaints, except as documented and Denies arthralgias Integumentary/Breasts Skin/Breast: Reports as per HPI and Reports rash Neurologic Neurologic: Denies dizziness and Denies paresthesias Allergic/Immunologic Allergic/Immunologic: Denies wheezing Physical Exam General General appearance: alert and in no apparent distress Head Head exam: atraumatic, normocephalic and normal inspection Eye Eye exam: Present normal appearance, PERRL and EOMI ENT ENT exam: Present normal exam, normal oropharynx, mucous membranes moist, TM's normal bilaterally and normal external ear exam Neck Neck exam: Present normal inspection, full ROM and trachea midline; Absent meningismus or lymphadenopathy Chest Chest inspection: Present normal inspection and symmetric chest wall rise; Absent tenderness Respiratory Respiratory exam: Present normal lung sounds bilaterally; Absent respiratory distress Cardiovascular Cardiovascular exam: Present regular rate and normal rhythm; Absent JVD Abdominal Exam Abdominal exam: Present soft and normal bowel sounds; Absent distention, tenderness or guarding Extremities Exam Extremities exam: Present normal inspection, full ROM and normal capillary refill; Absent calf tenderness Back Exam Back exam: Present normal inspection; Absent tenderness Neurological Exam Neurological exam: Present alert and oriented X3 Psychiatric Psychiatric exam: Present normal affect and normal mood Skin Skin exam: Present rash Lymphatic Lymphatic Findings: no adenopathy Medical Decision Making Medical Records Medical records reviewed: No I reviewed the patient's medical records. Screening: Per USPSTF and CDC recommendations, given the prevalence of disease in our region, it is our hospital?s policy to screen for HIV and viral Hepatitis for all patients aged 18 and over and those with ongoing risk factors. Giuseppe Inquiry Pt receiving controlled substance: No Vital Signs: 05/12/24 08:55 Temperature 98.2 F Temperature Source Oral Pulse Rate [Left Brachial] 65 Respiratory Rate 17 Blood Pressure [Left Arm] 148/80 H Blood Pressure Mean [Left Arm] 102 Blood Pressure Source [Left Arm] Automatic Cuff Blood Pressure Position [Left Arm] Sitting 02 Sat by Pulse Oximetry 98 Oxygen Delivery Method Room Air
[2024-05-12 09:37] VITALS: BP 148/80; PULSE 65; RESP 17; TEMP 36.8; O2SAT 98
== END 2024-05-12 09:39 | disposition home or self-care (01) ==
PROVIDERS: Emergency Provider Nurse Practitioner Family; PCP Family Medicine
DX: L20.9 Atopic dermatitis, unspecified (principal); R21 Rash and other nonspecific skin eruption
CPT/HCPCS: 99212; G0381

== ENCOUNTER 2024-10-20 08:06 | Outpatient (CLI) | payer BC, SELFPAY ==
[2024-10-21 14:58] LABS: H. pylori Breath Test Negative (Negative)
== END 2024-10-20 23:59 | disposition home or self-care (01) ==
LOC: LAB 08:07
PROVIDERS: PCP Family Medicine; Visit Provider Family Medicine
DX: L50.9 Urticaria, unspecified (principal)
CPT/HCPCS: 83013

== ENCOUNTER 2025-01-12 07:56 | Outpatient (CLI) | payer BC, SELFPAY ==
--- NOTE | 2025-01-12 | MM_ITS ---
PROCEDURE INFORMATION: Exam: MG Bilateral Screening 3D Mammography Exam date and time: 01/12/2025 8:06 AM Age: 59 years old Clinical indication: Screening examination. A paternal aunt had breast cancer at age 40 and a paternal cousin had breast cancer at age 53. TECHNIQUE: Imaging protocol: Bilateral Screening tomosynthesis and 2D mammography including computer-aided detection (CAD) when performed. COMPARISON: 1. MG MM DIG SCREENING MAMM BI W/CAD 02/22/2022 3:34 PM 2. MG MM DIG SCREENING MAMM BI W/CAD 07/03/2020 3:51 PM 3. MG MM DIG SCREENING MAMM BI W/CAD 07/02/2019 4:59 PM 4. MG DMSB DIG MAMM-SCREEN BRIAN 02/01/2014 4:02 PM FINDINGS: MAMMOGRAPHY: Breast composition: The breasts are heterogeneously dense, which may obscure small masses. Mass: None. Architectural distortion: None. Calcifications: No suspicious calcifications. Asymmetric density: None. Skin thickening: None. Axillary adenopathy: None. IMPRESSION: No mammographic evidence of malignancy. Annual screening is recommended unless otherwise clinically indicated. ASSESSMENT: BI-RADS Category 1: Negative.
== END 2025-01-12 23:59 | disposition home or self-care (01) ==
LOC: RAD 07:57
PROVIDERS: PCP Family Medicine; Visit Provider Family Medicine
DX: Z12.31 Encounter for screening mammogram for malignant neoplasm of breast (principal); R92.333 Mammographic heterogeneous density, bilateral breasts; Z85.3 Personal history of malignant neoplasm of breast
CPT/HCPCS: 77063; 77067

== ENCOUNTER 2025-05-09 09:52 | Outpatient (CLI) | payer BC, SELFPAY ==
--- NOTE | 2025-05-09 09:54 | US_ITS ---
FINAL REPORT CLINICAL HISTORY: LEFT FLANK PAIN FINDINGS: Limited sonographic images were obtained of the soft tissues in the left back at the area of reported palpable abnormality. No fluid collection is seen. There are several hypoechoic oval abnormalities. One is palpable and measures 2.1 cm. There are 2 smaller adjacent abnormalities which are not palpable but have a similar appearance. IMPRESSION: Palpable abnormality may represent lipoma with 2 adjacent possibly smaller lipomas. Reviewed, Interpreted and Dictated by Nataliia Aguilar MD Transcribed by Linnette Whitley Authenticated and [facility]
== END 2025-05-09 23:59 | disposition home or self-care (01) ==
LOC: RAD 09:52
PROVIDERS: PCP Family Medicine; Visit Provider Physician Assistant
DX: R19.09 Other intra-abdominal and pelvic swelling, mass and lump (principal); R10.A2 Flank pain, left side
CPT/HCPCS: 76604

== ENCOUNTER 2025-05-11 07:18 | Outpatient (CLI) | payer BC, SELFPAY ==
--- OUTSIDE RECORDS SUMMARY | 2024-10-15 06:45 | XMS_ITS ---
Author Organization [facility] Address [address] [facility] [address] [place] [id number] Care Team Providers Care Alarm Security Or Surveillance Monitor Name Role Phone Chriss Fuentes Primary Care Provider Allergies Allergen (clinical drug ingredient) Drug/Non Drug Allergy documented on EMR Reaction Allergy Type Onset Date Status Substance with sulfonamide structure and antibacterial mechanism of action (substance) Sulfa Antibiotics Unknown Drug Allergy Active Results Component Value Reference Range Notes H-Urea Breath Test Reviewed date:10/22/2024 03:53:57 PM Interpretation:Normal Performing Lab: Notes/Report: Patient Height (inches): 66.00 Patient Weight (pounds): 150 HPYBREATHR Negative Negative Performed at: [address] [id number] Business Performance Advisor: Mckay Monet PhD, Phone: [phone] P-Antinuclear Antibodies (AN A) Screen, Reflex SARAH 9 Panel Reviewed date:10/22/2024 03:53:57 PM Interpretation:Normal Performing Lab: Notes/Report: Test performed by [facility] [address] [place], [place] [address] , [address], [place] [address] Theron Wang MD, Office Services Manager CLIA: [id number] Antinuclear Antibodies (SARAH) Screen, Reflex SARAH 9 Panel Negative Negative This test is performed by Multiplex Bead Immunoassay methodology. P-CBC with Diff plus Absolut e Counts Reviewed date:10/22/2024 03:53:57 PM Interpretation:Normal Performing Lab: Notes/Report: Test performed by [facility] [address] [place], [place] [address], [address], [place] [address] Theron Wang MD, Office Services Manager CLIA: [id number] WBC 6.0 3.8-11.5 K/uL Red Blood Cell Count (RBC) 4.70 3.60-5.30 M/mm 3 Hemoglobin (Hgb) 13.9 11.5-15.5 gm/dL Hematocrit (HCT) 43.0 35.2-46.4 % MCV 91.5 79.0-99.0 fL MCH 29.6 26.9-35.0 pg MCHC 32.3 30.4-34.8 g/dL RDW 46.2 38.6-53.8 fL Platelet Count 364 137-397 K/cumm Neutrophils Automated 60.0 41.0-77.0 % Lymphocytes Automated 27.7 14.0-48.0 % Monocytes Automated 8.1 4.0-13.0 % Eosinophils Automated 2.9 0.0-8.0 % Basophils Automated 1.0 0.0-1.5 % Immature Granulocyte Automated 0.3 0.0-1.0 % Absolute Neutrophil Count 3.6 2.0-8.2 K/uL Absolute Lymphocyte Count 1.7 0.9-3.6 K/uL Absolute Monocyte Count 0.5 0.3-1.0 K/uL Absolute Eosinophil Count 0.2 0.0-0.6 K/uL Absolute Basophil Count 0.1 0.0-0.1 K/uL Absolute Immature Granulocyte 0.02 0.00-0.03 K/uL P-Comprehensive Metabolic Pa jeevan (CMP) Reviewed date:10/22/2024 03:53:57 PM Interpretation:satisfactory Performing Lab: Notes/Report: Test performed by [facility], [address] , [address], [place] [address] Theron Wang MD, Office Services Manager CLIA: [id number] Sodium 140 135-145 mmol/L Potassium 4.1 3.5-5.3 mmol/L Chloride 106 97-108 mmol/L CO2 22 22-32 mmol/L Glucose 82 65-99 mg/dL BUN 21 6-20 mg/dL Creatinine 0.67 0.50-1.00 mg/dL Calcium 9.9 8.6-10.4 mg/dL eGFR by Creatinine 102 >59 mL/min/1.73m2 Protein 7.1 6.0-8.3 g/dL Albumin 4.6 3.5-5.3 g/dL Alkaline Phosphatase 73 35-121 IU/L ALT (SGPT) 21 <5-47 IU/L AST (SGOT) 21 <5-40 IU/L Bilirubin, Total 0.3 <0.2-1.2 mg/dL A/G Ratio 1.8 1.1-2.5 P-Sed Rate (ESR) Reviewed date:10/22/2024 03:53:57 PM Interpretation:Normal Performing Lab: Notes/Report: Test performed by [facility] [address] [place], [place] [address] , [address], [place] [address] Theron Wang MD, Office Services Manager CLIA: [id number] Erythrocyte Sedimentation Rate (ESR), Automated 12 <31 mm/hr P-TSH Reviewed date:10/22/2024 03:53:57 PM Interpretation:Normal Performing Lab: Notes/Report: Test performed by [facility] [address] [place] [address] , [address], [place] [address] Theron Wang MD, Office Services Manager CLIA: [id number] TSH 1.86 0.43-5.25 mU/L Antinuclear Antibodies (SARAH) Result Note Reviewed date:10/22/2024 03:53:57 PM Interpretation:Normal Performing Lab: Notes/Report: Test performed by [facility] [address] [place] [address] , [place] [address] Theron Wang MD, Office Services Manager CLIA: [id number] Antinuclear Antibodies (SARAH) Result Note SEE COMMENT For positive Autoantibodies, please refer to the interpretive chart here: [email or web address] REASON FOR VISIT check up, Needs mammogram, labs, Tdap, & shingles vaccine Medications Medication SIG (Take, Route, Fr equency, Duration) Notes Start Date End Date Status Belkys Allergy 180 MG 1 tablet Swallow whole with water; do not take with fruit juices. Orally Once a day; Duration: 30 day(s) 10/15/2024 Active Vital Signs Weight 154.4 lbs 10/15/2024 Blood pressure systolic 162 mm Hg 10/16/19 25 Blood pressure diastolic 98 mm Hg 025 Heart Rate 59 /min 10/15/2024 Height 55 in 10/15/2024 BMI 35.88 kg/m2 10/15/2024 Encounters Encounter Location Date Provider Diagnosis [facility] [address] [facility] [address] [facility] [address] [place] [id number] 10/15/2024 Chriss Fuentes Urticaria L50.9 ; Livedo reticularis R23.1 and Pruritic dermatitis L30.8 Assessments Encounter Date Diagnosis (ICD Code) Assessment Notes Treatment Notes Treatment Clinical Notes Section Notes 10/15/2024 Urticaria (ICD-10 - L50.9) 10/15/2024 Livedo reticularis (ICD-10 - R23.1) 10/15/2024 Pruritic dermatitis (ICD-10 - L30.8) Plan Of Treatment Medication Medication Name Sig Start Date Stop Date Notes Belkys Allergy 180 MG 1 tablet Swallow whole with water; do not take with fruit juices. Orally Once a day; Duration: 30 day(s) 10/15/2024 Pending Test Test Name Order Date P-SARAH 10/15/2024 Next Appt Details Follow Up: 4 Weeks, Reason: Provider Name:Mayda villegas, 05/13/2025 10:00:00 AM, [address] [facility] [address] [facility], [address], [place], [id number], Progress Notes * Annia GRAYDOB: [birth year] (59 yo F)Acc No.[id number]:10/15/2024 Progress Notes Patient: Annia SANTANA Provider: Chriss Fuentes M.D. :1965 A ge:59 Y S ex:Female Date:10/15/2024 Address:[id number] Subjective: * Chief Complaints: * 1 . Check up. 2. Needs mammogram, labs, Tdap, & shingles vaccine. * HPI: H PI: 59 year old female presents with c/o Here for follow up on:?labs. Pt is here for a check up and lab studies. Pt states she is feeling more tired than usuual. Pt states she was sick in August and since then she has felt more fatigued. D ermatology: c/o redness T he pt states she has had episodes of a burning sensation and redness in different areas. Pt states she stopped the probiotic and this is doing better. Denies : itching. * ROS: D ERMATOLOGY: no R estefanía. n o H laurie. G ASTROENTEROLOGY: no N ausea. n o V omiting. n o D iarrhea.? U ROLOGY: no D ifficulty urinating. n o B lood in urine. * Medical History: PAP neg, abnormal PAP showing possible high grade intraepithelial lesion 01/27/14, ECC negative for lesions 04/06/14. * Surgical History: c -section , plate taken out of ankle 02/2013, colonoscopy 07/25/2020. * Hospitalization/Major Diagno stic Procedure: f ria . * Family History: F ather: 28 yrs, stabbing. M other: alive, diabetes, hypertension. P aternal Grand Father: . P aternal Grand Mother: . M aternal Grand Father: , diabetes. M aternal Grand Mother: , diabetes. P aternal uncle: alive. P aternal aunt: , breast cancer. M aternal uncle: , agent orange. M aternal aunt: alive. S iblings: alive, diabetes both brother and sister. C hildren: alive. 1 brother(s) , 1 sister(s) . 1 daughter(s) . . * Social History: C URRENT TOBACCO USE: No . C affeine: yes, frequency:. Home smoke detector use: yes. Marital Status: Single. New since last visit: pt stopped smoking August 19, 2006. 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 Past smoking status: yes, Smoking status: Does not smoke Pt quit smoking in 2006. Alcohol: No, once a year, mixed drink. Sexually active: no.. * Medications: D iscontinued metroNIDAZOLE 500 MG Tablet 1 tablet Orally Two times a day , Discontinued Meloxicam 15 MG Tablet 1 tab(s) orally once a day , Discontinued Gabapentin 100 MG Capsule 2 orally 3 times a day * Allergies: S ulfa Antibiotics. Objective: * Vitals: W t: 154.4, Temp: 97.8, BP: 162/98, HR: 59, Nurse: NETTE, Ht: 55, BMI:35.88. * Examination: G eneral Examination: General Appearance: N AD. H EENT: u nremarkable.?Oral cavity: n o lesions, mucosa moist and WNL, no erythema. N jadiel: s upple, no lymphadenopathy , no thyromegaly. C hest: n ormal shape and expansion. H eart: R SR. Lungs: c lear to auscultation. A bdomen: s oft and nontender. N eurologic Exam:?Intact, gait normal. S kin: d ermatographia, some livido reticularis, some blotchiness.?Peripheral pulses: n ormal. E xtremities: n o leg edema. Assessment: * Assessment: 1. U rticaria - L50.9 (Primary) 2 . 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 P ruritic dermatitis - L30.8 Plan: * Treatment: Value Reference Range H PYBREATHR Negative Negative - * Grace Otto 10/22/2024 03 :53:21 PM > Left voicemail informing of normal lab results 2.?Pruritic dermatitis?LAB: P-CBC with Diff plus Absolute Counts (Collection Date & Time - 10/15/2024 12:54 PM)?Normal* Value Reference Range A bsolute Basophil Count 0.1 0.0-0.1 - K/uL * A bsolute Eosinophil Count 0.2 0.0-0.6 - K/uL * A bsolute Immature Granulocyte 0.02 0.00-0.03 - K/uL * A bsolute Lymphocyte Count 1.7 0.9-3.6 - K/uL * A bsolute Monocyte Count 0.5 0.3-1.0 - K/uL * A bsolute Neutrophil Count 3.6 2.0-8.2 - K/uL * B asophils Automated 1.0 0.0-1.5 - % * E osinophils Automated 2.9 0.0-8.0 - % * H ematocrit (HCT) 43.0 35.2-46.4 - % * H emoglobin (Hgb) 13.9 11.5-15.5 - gm/dL * I mmature Granulocyte Automated 0.3 0.0-1.0 - % * L ymphocytes Automated 27.7 14.0-48.0 - % * M CH 29.6 26.9-35.0 - pg * M CHC 32.3 30.4-34.8 - g/dL * M CV 91.5 79.0-99.0 - fL * M onocytes Automated 8.1 4.0-13.0 - % * P latelet Count 364 137-397 - K/cumm * R ed Blood Cell Count (RBC) 4.70 3.60-5.30 - M/ mm3 * R DW 46.2 38.6-53.8 - fL * N eutrophils Automated 60.0 41.0-77.0 - % * W BC 6.0 3.8-11.5 - K/uL * Grace Otto 10/22/2024 03 :53:21 PM > Left voicemail informing of normal lab results ?LAB: P-Comprehensive Metabolic Panel (CMP) (Collection Date & Time - 10/15/2024 12:54 PM)?satisfactory* Value Reference Range A /G Ratio 1.8 1.1-2.5 - * A lbumin 4.6 3.5-5.3 - g/dL * A lkaline Phosphatase 73 35-121 - IU/L * A LT (SGPT) 21 <5-47 - IU/L * A ST (SGOT) 21 <5-40 - IU/L * B ilirubin, Total 0.3 <0.2-1.2 - mg/dL * B UN 21 H 6-20 - mg/dL * C alcium 9.9 8.6-10.4 - mg/dL * C hloride 106 97-108 - mmol/L * C O2 22 22-32 - mmol/L * C reatinine 0.67 0.50-1.00 - mg/dL * G lucose 82 65-99 - mg/dL * P otassium 4.1 3.5-5.3 - mmol/L * S odium 140 135-145 - mmol/L * P rotein 7.1 6.0-8.3 - g/dL * e GFR by Creatinine 102 >59 - mL/min/1.73m2 * Grace Otto 10/22/2024 03 :53:21 PM > Left voicemail informing of normal lab results ?LAB: P-Sed Rate (ESR) (Collection Date & Time - 10/15/2024 12:54 PM)?Normal * Value Reference Range E rythrocyte Sedimentation Rate (ESR), Automated 12 <31 - mm/hr * Grace Otto 10/22/2024 03 :53:21 PM > Left voicemail informing of normal lab results ?LAB: P-TSH (Collection Date & Time - 10/15/2024 12:54 PM)?Normal* Value Reference Range T SH 1.86 0.43-5.25 - mU/L * Grace Otto 10/22/2024 03 :53:21 PM > Left voicemail informing of normal lab results ?LAB: P-SARAH (Collection Date & Time - 10/15/2024 01:49 PM) * Labs: * L ab: P-Antinuclear Antibodies (SARAH) Screen, Reflex SARAH 9 Panel (Collection Date & Time - 10/15/2024 12:54 PM) N ormal Value Reference Range A ntinuclear Antibodies (SARAH) Screen, Reflex SARAH 9 Panel Negative Negative - * [facility], IT support 10/18/2024 05:55:06 : This order was created by the Interface. Grace Otto 10/22/2024 03:53:21 PM > Left voicemail informing of normal lab results ?Lab: Antinuclear Antibodies (SARAH) Result Note (Collection Date & Time - 10/15/2024 12:54 PM)?Normal* Value Reference Range A ntinuclear Antibodies (SARAH) Result Note SEE COMMENT - * [facility], IT support 10/18/2024 05:55:06 : This order was created by the Interface. Grace Otto 10/22/2024 03:53:21 PM > Left voicemail informing of normal lab results * Follow Up: 4 Weeks * Images: Billing Information: * Visit Code: 46276 Office Visit, Est Pt., Level 4. * Procedure Codes: * Electronic signature of Chriss Fuentes MD on 05/11/2025 at 07:21 AM EST Sign off status: Pending * Provider: Chriss Fuentes M.D. Date: 0 10/15/2024 Generated for Printi tara/Jerzy/eTransmitting on: 1 07/12/2024 07:21 AM EST History and Physical Notes * HPI (History of Present Illness) Category Sub-Category Detail Notes Category Not es Dermatology redness The pt states sh e has had episodes of a burning sensation and redness in different areas. Pt states she stopped the probiotic and this is doing better itching HPI Here for follow up on: labs. Pt is here for a check up and lab studies. Pt states she is feeling more tired than usuual. Pt states she was sick in August and since then she has felt more fatigued Examination Category Sub-Category Detail Notes Category Not es General Examination HEENT: unremarkable Heart: RSR Lungs: clear to auscultatio n Abdomen: soft and nontender Extremities: no leg edema General Appearance: NAD Skin: dermatographia, some livido reticularis, some blotchiness Neurologic Exam: Intact, gait normal Neck: supple, no lymphaden opathy , no thyromegaly Oral cavity: no lesions, mucosa m oist and WNL, no erythema Peripheral pulses: normal Chest: normal shape and exp ansion
--- OUTSIDE RECORDS SUMMARY | 2024-11-26 06:15 | XMS_ITS ---
Author Organization [facility] Address [address] [facility] [address] [place] [id number] Care Team Providers Care Turn Supervisor Name Role Phone Chriss Fuentes Primary Care Provider Allergies Allergen (clinical drug ingredient) Drug/Non Drug Allergy documented on EMR Reaction Allergy Type Onset Date Status Substance with sulfonamide structure and antibacterial mechanism of action (substance) Sulfa Antibiotics Unknown Drug Allergy Active REASON FOR VISIT 6 week f/u Medications Medication SIG (Take, Route, Fr equency, Duration) Notes Start Date End Date Status Belkys Allergy 180 MG 1 tablet Swallow whole with water; do not take with fruit juices. Orally Once a day; Duration: 30 day(s) 10/15/2024 Active Problems Problem Type SNOMED Code ICD Code Onset Dates Problem Status W/U Status Risk Notes Problem Irritable bowel syndrome (16591420) Irritable bowel syndrome with both constipation and diarrhea (K58.2) Active confirmed Vital Signs Weight 151.0 lbs 11/26/2024 Blood pressure systolic 140 mm Hg 11/27/19 25 Blood pressure diastolic 90 mm Hg 025 Heart Rate 60 /min 11/26/2024 Height 55 in 11/26/2024 BMI 35.09 kg/m2 11/26/2024 Encounters Encounter Location Date Provider Diagnosis [facility] [address] [place] [id number] 11/26/2024 Chriss Fuentes Skin rash R21 and Irritable bowel syndrome with both constipation and diarrhea K58.2 Assessments Encounter Date Diagnosis (ICD Code) Assessment Notes Treatment Notes Treatment Clinical Notes Section Notes 11/26/2024 Skin rash (ICD-10 - R21) 11/26/2024 Irritable bowel syndrome with both constipation and diarrhea (ICD-10 - K58.2) Konsyl and Align recommended Plan Of Treatment Treatment Notes Assessment Notes Irritable bowel syndrome wit h both constipation and diarrhea Konsyl and Align recommended Next Appt Details Follow Up: 5 M, Reason: Provider Name:Mayda villegas, 05/13/2025 10:00:00 AM, [address] [facility] [address], [address], [place], [place], [id number], Progress Notes * Annia GRAYDOB: [birth year] (59 yo F)Acc No.[id number]:11/26/2024 Patient: Annia SANTANA Provider: Chriss Fuentes M.D. :1965 A ge:59 Y S ex:Female Date:11/26/2024 Address:[address] [place] [address] [place], [id number] Subjective: * Chief Complaints: * 1 . 6 week f/u. * HPI: D ermatology: The pt is here for a follow-up on Urticaria. Pt states she is doing much better with the Belkys. Pt states she does still get some red spots on her arms. 59 year old female presents with c/o redness. * ROS: D ERMATOLOGY: no R estefanía. [...] iblings: alive, diabetes both brother and sister. Jasvir win: alive. 1 brother(s) , 1 sister(s) . 1 daughter(s) . . * Social History: C URRENT TOBACCO USE: No . C affeine: yes, frequency:. Home smoke detector use: yes. Marital Status: Single. New since last visit: pt stopped smoking August 19, 2006. 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 Past smoking status: yes, Smoking status: Does not smoke Pt quit smoking in 2006. Alcohol: No, once a year, mixed drink. Sexually active: no.. * Medications: T aking Belkys Allergy 180 MG Tablet 1 tablet Swallow whole with water; do not take with fruit juices. Orally Once a day , Medication List reviewed and reconciled with the patient * Allergies: S ulfa Antibiotics. Objective: * Vitals: W t: 151.0, Temp: 98.1, BP: 140/90, HR: 60, Nurse: NETTE, Ht: 55, BMI:35.09. * Examination: G eneral Examination: General Appearance: N AD. H EENT: u nremarkable.?Oral cavity: n o lesions, mucosa moist and WNL, no erythema. N jadiel: s upple, no lymphadenopathy , no thyromegaly. C hest: n ormal shape and expansion. H eart: R SR. Lungs: c lear to auscultation. A bdomen: s oft and nontender, hyperactive BS. N eurologic Exam: I ntact, gait normal. S kin: d ermatographia, some livido reticularis.?Peripheral pulses: n ormal. E xtremities: n o leg edema. Assessment: * Assessment: 1. S kin rash - R21 (Primary) 2 . I rritable bowel syndrome with both constipation and diarrhea - K58.2 Plan: * Treatment: * Procedure Codes: 1 036F TOBACCO NON-USER * Follow Up: 5 M * Images: Billing Information: * Visit Code: 81780 Office Visit, Est Pt., Level 4. * Procedure Codes: 1036F TOBACCO NON-USER. * Electronic signature of Chriss Fuentes MD on 05/11/2025 at 07:21 AM EST Sign off status: Pending * Provider: Chriss Fuentes M.D. Date: 0 11/26/2024 Generated for Young pacheco/Jerzy/eTransmitting on: 1 07/12/2024 07:21 AM EST History and Physical Notes * HPI (History of Present Illness) Category Sub-Category Detail Notes Category Not es Dermatology redness Examination Category Sub-Category Detail Notes Category Not es General Examination HEENT: unremarkable Heart: RSR Lungs: clear to auscultatio n Abdomen: soft and nontender, hyperactive BS Extremities: no leg edema General Appearance: NAD Skin: dermatographia, some livido reticularis Neurologic Exam: Intact, gait normal Neck: supple, no lymphaden opathy , no thyromegaly Oral cavity: no lesions, mucosa m oist and WNL, no erythema Peripheral pulses: normal Chest: normal shape and exp ansion
--- OUTSIDE RECORDS SUMMARY | 2025-04-29 04:15 | XMS_ITS ---
Author Organization [facility] Address [address] [place] [id number] Care Team Providers Care Ship Keeper Name Role Phone Chriss Fuentes Primary Care Provider Mayda Munson Unavailable [phone] Allergies Allergen (clinical drug ingredient) Drug/Non Drug [...] date:05/06/2025 02:36:15 PM Interpretation: Performing Lab: Notes/Report: CLIA: [id number] Joan Yanes MD, PhD, [employer], [employer] [address] [place] [address] , [address], [place] [address] Test performed by [employer], [facility] Sodium 142 135-145 mmol/L Potassium 4.0 3.5-5.3 [...] Interpretation: Performing Lab: Notes/Report: Test performed by [employer] [address] [place] [address] , [place] [address] Joan Yanes MD, PhD, [facility], Solar Installation Foreman CLIA: [id number] Creatine Kinase 68 20-180 U/L P-Arthritis Panel, [employer] Reviewed date:05/06/2025 02:36:15 PM Interpretation: Performing Lab: Notes/Report: Test performed by [employer] [address] [place] [address] , [facility], [place] [address] Joan Yanes MD, PhD, [facility], Solar Installation Foreman CLIA: [id number] Erythrocyte Sedimentation Rate (ESR), Automated 25 <31 mm/hr Rheumatoid Factor 13.0 <14.1 IU/mL C-Reactive Protein (CRP) 2.19 <0.50 mg/dL Antinuclear Antibodies (SARAH) Screen, Reflex SARAH 9 Panel Negative Negative This test is performed by Multiplex Bead Immunoassay methodology. Antinuclear Antibodies (SARAH) Result Note SEE COMMENT For positive Autoantibodies, please refer to the interpretive chart here: [email or web address] [email or web address] [email or web address] CCP Antibodies <0.5 <0.5-3.0 U/mL P-TSH reflex to FT4 Reviewed date:05/06/2025 02:36:15 PM Interpretation: Performing Lab: Notes/Report: Test performed by [employer] [address] [facility] , [address], [place] [address] Joan Yanes MD, PhD, [facility], [employer]ation Foreman CLIA: [id number] TSH reflex to FT4 1.21 0.43-5.25 mU/L Covid test (in house) Reviewed date:04/29/2025 12:31:47 PM Interpretation: Performing Lab: Notes/Report: Result: neg TENS- wound panel Reviewed date:05/06/2025 02:36:15 PM Interpretation:Abnormal Performing Lab: Notes/Report: Abnormal Ultrasound : Back, mass (Not yet reviewed by provider) Interpretation: Performing Lab: Notes/Report: REASON FOR VISIT feeling sick Medications Medication SIG (Take, Route, Fr equency, Duration) Notes Start Date End Date Status Belkys Allergy 180 MG 1 tablet Swallow whole with water; do not take with fruit juices. Orally Once a day; Duration: 90 days 10/15/2024 Active Vital Signs Weight 160 lbs 04/29/2025 Blood pressure systolic 132 mm Hg 04/29/20 25 Blood pressure diastolic 80 mm Hg 025 Heart Rate 66 /min 04/29/2025 Height 55 in 04/29/2025 BMI 37.18 kg/m2 04/29/2025 Encounters Encounter Location Date Provider Diagnosis [facility] [address] [facility] [address] [place] [id number] 04/29/2025 Mayda Crowdy Rash R21 ; Myalgia M79.10 ; Body [...] Once a day; Duration: 90 days 10/15/2024 Pending Test Test Name Order Date Ultrasound : Back, mass 04/29/2025 Next Appt Details Follow Up: via phone to repo rt test results, Reason: Provider Name:Mayda Holder y, 05/13/2025 10:00:00 AM, [address], [address], [place], [id number], Progress Notes * Annia GRAYDOB: [birth year] (59 yo F)Acc No.[id number]:04/29/2025 Progress Notes Patient: Annia SANTANA Provider: KELLEY Spangler :1965 A ge:59 Y S ex:Female Date:04/29/2025 Address:[place], [id number] Pcp:Chriss Fuentes Subjective: * Chief Complaints: * [...] pt stopped smoking August 19, 2006. 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 Past smoking status: yes, Smoking status: Does [...] Temp: 97.8, BP: 132/80, HR: 66, Nurse: pe, Ht: 55, BMI:37.18. * Examination: G eneral Examination: General Appearance: N AD. H EENT: u nremarkable.?Oral cavity: n o lesions, mucosa moist and WNL, no erythema. N jadiel: s upple, no lymphadenopathy. C hest: n [...] 1.21 0.43-5.25 - mU/L * Mayda Munson 05/06/2025 02:36:07 PM EST >see TE 3.?Body aches?LAB: Influenza Screen (in house) (Collection Date & Time - 04/29/2025)* Value Reference Range r esults neg * Isis Dbuois 04/29/2025 10:08:45 AM EST > Provider reviewed [...] Ultrasound : Back, mass (Performed Date - 05/09/2025)* Mayelin Scales 04/29/2025 01: 35:28 PM EST > faxed to [facility] Scheduling * Procedure Codes: 3 6416 CAPILLARY BLOOD DRAW, 12782 CBC WITH AUTO DIFF, 09247 Flu Test- Nasal Swab, Modifiers: QW , 01539 COVID TEST IN HOUSE, Modifiers: QW * Follow Up: v ia phone to report test results * Images: Billing Information: * Visit Code: 53464 Office Visit, Est Pt., Level 4. * Procedure Codes: 69933 CAPILLARY BLOOD DRAW. 58654 CBC WITH AUTO DIFF. 21974 Flu Test- Nasal Swab. Modifiers: QW 83763 COVID TEST IN HOUSE. Modifiers: QW * Electronic signature of KELLEY Martinez on 05/11/2025 at 07:21 AM EST Sign off status: Pending * Provider: KELLEY Spangler Date: 06/29/2024 Generated for Young pacheco/Jerzy/eTransmitting on: 07/12/2024 07:21 AM EST History and Physical [...]
--- NOTE | 2025-05-11 07:20 | US_ITS ---
FINAL REPORT TECHNIQUE: Sonographic images of the right upper quadrant were obtained. CLINICAL HISTORY: ELEVATED LFTs COMPARISON: None FINDINGS: PANCREAS: Unremarkable. LIVER: Homogeneous. No focal hepatic lesion. No intrahepatic biliary ductal dilatation. GALLBLADDER: There is at least 1 echogenic focus in the gallbladder, that may represent a polyp or nonshadowing stone. No gallbladder wall thickening or pericholecystic fluid. COMMON DUCT: 4 mm. RIGHT KIDNEY: The right kidney measures 8.6 cm. There is no hydronephrosis, mass, or stone. FREE FLUID: None. IMPRESSION: There is at least 1 echogenic focus in the gallbladder, which may represent a polyp or a nonshadowing stone. No focal gallbladder wall thickening or biliary ductal dilatation are noted. Reviewed, Interpreted and Dictated by Nataliia Aguilar MD Transcribed by Deisy Jacobson Authenticated and [facility]
--- OUTSIDE RECORDS SUMMARY | 2025-05-11 07:21 | XMS_ITS | Patient Health Record ---
[facility] Address [address] [facility] [address] [place] [id number] Care Team Providers Care Lidding Machine Operator Name Role Phone Chriss Fuentes Primary Care Provider Jerry Isaac Unavailable [phone] Mayda Munson Unavailable [phone] Allergies Allergen (clinical drug ingredient) Drug/Non Drug [...] Interpretation: Performing Lab: Notes/Report: Test performed by [facility] [address] [place] [address] , [address], [place] [address] Joan Yanes MD, PhD, AP, Nuclear Engineer CLIA: [id number] Sodium 142 135-145 mmol/L Potassium 4.0 3.5-5.3 [...] Interpretation: Performing Lab: Notes/Report: Test performed by [facility] [address] [place] [address] , [address], [place] [address] Joan Yanes MD, PhD, [facility], Nuclear Engineer CLIA: [id number] Creatine Kinase 68 20-180 U/L P-Arthritis Panel, StemCells Reviewed date:05/06/2025 02:36:15 PM Interpretation: Performing Lab: Notes/Report: Test performed by [facility] [address] [place] [address] , [address], [place] [address] Joan Yanes MD, PhD, [facility], Nuclear Engineer CLIA: [id number] Erythrocyte Sedimentation Rate (ESR), Automated 25 <31 mm/hr Rheumatoid Factor 13.0 <14.1 IU/mL C-Reactive Protein (CRP) 2.19 <0.50 mg/dL Antinuclear Antibodies (SARAH) Screen, Reflex SARAH 9 Panel Negative Negative This test is performed by Multiplex Bead Immunoassay methodology. Antinuclear Antibodies (SARAH) Result Note SEE COMMENT For positive Autoantibodies, please refer to the interpretive chart here: [email or web address] CCP Antibodies <0.5 <0.5-3.0 U/mL P-TSH reflex to FT4 Reviewed date:05/06/2025 02:36:15 PM Interpretation: Performing Lab: Notes/Report: Test performed by [facility] [address] [place] [address] , [address], [place] [address] Joan Yanes MD, PhD, [facility], Nuclear Engineer CLIA: [id number] TSH reflex to FT4 1.21 0.43-5.25 mU/L Covid test (in house) Reviewed date:04/29/2025 12:31:47 PM Interpretation: Performing Lab: Notes/Report: Result: neg TENS- wound panel Reviewed date:05/06/2025 02:36:15 PM Interpretation:Abnormal Performing Lab: Notes/Report: Abnormal Ultrasound : Back, mass (Not yet reviewed by provider) Interpretation: Performing Lab: Notes/Report: Cologuard Reviewed date:02/03/2025 03:49:26 PM Interpretation:Negative Performing Lab: Notes/Report: Negative Mammogram Reviewed date:01/17/2025 04:29:12 PM Interpretation:Negative Performing Lab: Notes/Report: Negative result Negative P-Comprehensive Metabolic Pa jeevan (CMP) Reviewed date:10/22/2024 03:53:57 PM Interpretation:satisfactory Performing Lab: Notes/Report: CLIA: [id number] Theron Wang MD, Nuclear Engineer [address] [place] [address] , [place] [address] Test performed by [facility] [facility] Sodium 140 135-145 mmol/L Potassium 4.1 3.5-5.3 [...] 0.3 <0.2-1.2 mg/dL A/G Ratio 1.8 1.1-2.5 P-TSH Reviewed date:10/22/2024 03:53:57 PM Interpretation:Normal Performing Lab: Notes/Report: Test performed by [employer] [address] , [place] [address] Theron Wang MD, Nuclear Engineer CLIA: [id number] TSH 1.86 0.43-5.25 mU/L Antinuclear Antibodies (SARAH) Result Note Reviewed date:10/22/2024 03:53:57 PM Interpretation:Normal Performing Lab: Notes/Report: Test performed by [employer] [address] , [address], [place] [address] Theron Wang MD, Nuclear Engineer CLIA: [id number] Antinuclear Antibodies (SARAH) Result Note SEE COMMENT For positive Autoantibodies, please refer to the interpretive chart here: [email or web address] P-Sed Rate (ESR) Reviewed date:10/22/2024 03:53:57 PM Interpretation:Normal Performing Lab: Notes/Report: Test performed by [facility] [address] [place] [address] , [address], [place] [address] Theron Wang MD, Nuclear Engineer CLIA: [id number] Erythrocyte Sedimentation Rate (ESR), Automated 12 <31 mm/hr P-CBC with Diff plus Absolut e Counts Reviewed date:10/22/2024 03:53:57 PM Interpretation:Normal Performing Lab: Notes/Report: Test performed by [facility] [address] [place] [address] , [address], [place] [address] Theron Wang MD, Nuclear Engineer CLIA: [id number] WBC 6.0 3.8-11.5 K/uL Red Blood Cell [...] K/uL Absolute Immature Granulocyte 0.02 0.00-0.03 K/uL P-Antinuclear Antibodies (AN A) Screen, Reflex SARAH 9 Panel Reviewed date:10/22/2024 03:53:57 PM Interpretation:Normal Performing Lab: Notes/Report: Test performed by [facility] [employer] [address] , [address], [place] [address] Theron Wang MD, Nuclear Engineer CLIA: [id number] Antinuclear Antibodies (SARAH) Screen, Reflex SARAH 9 Panel Negative Negative This test is performed by Multiplex Bead Immunoassay methodology. H-Urea Breath Test Reviewed date:10/22/2024 03:53:57 PM Interpretation:Normal Performing Lab: Notes/Report: Patient Weight (pounds): 150 Patient Height (inches): 66.00 HPYBREATHR Negative Negative Performed at: [address] [id number] Home Specialist: Mckay Monet PhD, Phone: [phone] Reason For Referral No Information Medications Medication SIG (Take, Route, Fr equency, Duration) Notes Start Date End Date Status Belkys Allergy 180 MG 1 tablet Swallow whole with water; do not take with fruit juices. Orally Once a day; Duration: 90 days 10/15/2024 Active Clindamycin HCl 300 MG 1 capsule Orally every 8 hrs; Duration: 7 days 05/04/2025 Active Immunizations Vaccine Route Administration Date Status Comme nts DT, 7 YEARS OR OLDER Unknown 08/11/1996 Administered COVID 19 Almaz Unknown 03/22/2021 Administered Problems Problem Type SNOMED Code ICD Code Onset Dates Problem Status W/U Status Risk Notes Problem Abnormal mammogram (591765470) ABNORMAL MAMMOGRAM (793.80) Active confirmed Problem Abnormal cervical smear (862064447) abnormal pap smear (795.02) Active confirmed Problem Menopausal and perimenopausal disorder (N95.9) Active confirmed Problem Chronic pain (38146465) Other chronic pain (G89.29) Active confirmed Problem Arthralgia of the ankle and/or foot (650963465) Pain in right ankle and joints of right foot (M25.571) Active confirmed Problem Fibrocystic breast changes (86545439) Diffuse cystic mastopathy of right breast (N60.11) Active confirmed Problem Neuropathy (932317761) Neuropathy (G62.9) Active confirmed Problem Syncope and collapse (677533348) Syncope, unspecified syncope type (R55) Active confirmed Problem Pain in pelvis (22438946) Pelvic pain (R10.2) Active confirmed Problem Acute pain of left knee (M25.562) Active confirmed Problem Backache (451019771) Upper back pain on left side (M54.9) Active confirmed Problem Gynecological examination normal (413905009215634) Well woman exam with routine gynecological exam (Z01.419) Active confirmed Problem Irritable bowel syndrome (14767145) Irritable bowel syndrome with both constipation and diarrhea (K58.2) Active confirmed Problem Cervical cyst (91955128) Cervical cyst (N88.8) Active confirmed Problem Fibrocystic breast changes (14733534) Fibrocystic breast disease (FCBD), unspecified laterality (N60.19) Active confirmed Vital Signs Heart Rate 66 /min 04/29/2025 Blood pressure diastolic 80 mm Hg 04/29/2025 Height 55 in 04/29/2025 Blood pressure systolic 132 mm Hg 04/29/2025 Weight 160 lbs 04/29/2025 BMI 37.18 kg/m2 04/29/2025 Encounters Encounter Location Date Provider Diagnosis [facility] [address] [place] [id number] 10/15/2024 Chriss Fuentes Urticaria L50.9 ; Livedo reticularis R23.1 and Pruritic dermatitis L30.8 [facility] [address] [facility] [address] [place], [place] [id number] 11/26/2024 J Fredy Fuentes Skin rash R21 and Irritable bowel syndrome with both constipation and diarrhea K58.2 [facility] [address] [facility] [address] [place], [place] [id number] 04/29/2025 Mayda Rodriguezmartine Rash R21 ; Myalgia M79.10 ; Body aches R52 and Left flank mass R19.09 [facility] [address] [facility] [address] [facility] [address] [place], [place] [id number] 12/06/2024 J Fredy Fuentes [facility] [address] [facility] [address] [place], [place] [id number] 05/04/2025 [place] [facility] [address] [facility] [address] [place], [place] [id number] 05/06/2025 Mayda Munson Assessments Encounter Date Diagnosis (ICD Code) Assessment Notes Treatment Notes Treatment Clinical Notes Section Notes 10/15/2024 Urticaria (ICD-10 - L50.9) 10/15/2024 Livedo reticularis (ICD-10 - R23.1) 11/26/2024 Irritable bowel syndrome with both constipation and diarrhea (ICD-10 - K58.2) Konsyl and Align recommended 11/26/2024 Skin rash (ICD-10 - R21) 04/29/2025 Rash (ICD-10 - R21) 04/29/2025 Myalgia (ICD-10 - M79.10) 04/29/2025 Body aches (ICD-10 - R52) 10/15/2024 Pruritic dermatitis (ICD-10 - L30.8) 04/29/2025 Left flank mass (ICD-10 - R19.09) Plan Of Treatment Pending Test Test Name Order Date Ultrasound : liver 05/09/2025 Ultrasound : Back, mass 04/29/2025 H-TSH 04/18/2023 H-VITAMIN D 04/18/2023 H-Lipid Panel 04/18/2023 H-CMP 04/18/2023 H-VITAMIN B12 04/18/2023 P-SARAH 10/15/2024 Next Appt Details Provider Name:Mayda villegas, 05/13/2025 10:00:00 AM, [address], [address], [place], [id number], Insurance Providers Payer Name Payer Address Payer Phone Subscriber Number Group Number Insured Name Patient Relationship to Insured Coverage Start Date Coverage End Date [employer] [id number] [place] [id number] Annia Gray Self - patient is the insured Medical (General) History Medical History History ICD Code 10/06/08 PAP neg abnormal PAP showing possible high grade intraepithelial lesion 01/27/14 ECC negative for lesions 04/06/14 Surgical History Surgery Date(Month/Year) plate taken out of ankle 02/2013 colonoscopy 07/25/2020 Hospitalization History Reason Date(Month/Year) flu
== END 2025-05-11 23:59 | disposition home or self-care (01) ==
LOC: RAD 07:19
PROVIDERS: PCP Family Medicine; Visit Provider Physician Assistant
DX: R93.2 Abnormal findings on diagnostic imaging of liver and biliary tract (principal); R79.89 Other specified abnormal findings of blood chemistry
CPT/HCPCS: 76705

== ENCOUNTER 2025-05-26 22:50 | Emergency (ER) | payer BC, SELFPAY ==
--- OUTSIDE RECORDS SUMMARY | 2024-10-15 06:45 | XMS_ITS ---
Author Organization [facility] Address [address] [facility] [address] [place] [id number] Care Team Providers Care Property Underwriter Name Role Phone Chriss Fuentes Primary Care [...] (pounds): 150 HPYBREATHR Negative Negative Performed at: [address] [id number] Flavorings Compounder: Mckay Monet PhD, Phone: [phone] P-Antinuclear Antibodies (AN A) Screen, Reflex SARAH 9 Panel Reviewed date:10/22/2024 03:53:57 PM Interpretation:Normal Performing Lab: Notes/Report: Test performed by [facility] [address] [place], [place] [address] [place] , [address], [place] [address] Theron Wang MD, Branch Office Manager CLIA: [id number] Antinuclear Antibodies (SRAAH) Screen, Reflex SARAH 9 Panel Negative Negative This test is performed by Multiplex Bead Immunoassay methodology. P-CBC with Diff plus Absolut e Counts Reviewed date:10/22/2024 03:53:57 PM Interpretation:Normal Performing Lab: Notes/Report: Test performed by [facility] [address] [place], [place] [address], [address], [place] [address] Theron Wang MD, Branch Office Manager CLIA: [id number] WBC 6.0 3.8-11.5 K/uL Red Blood Cell [...] Interpretation:satisfactory Performing Lab: Notes/Report: Test performed by [facility], [address] , [address], [place] [address] Theron Wang MD, Branch Office Manager CLIA: [id number] Sodium 140 135-145 mmol/L Potassium 4.1 3.5-5.3 [...] Interpretation:Normal Performing Lab: Notes/Report: Test performed by [facility] [facility] [address] [place], [place] [address] [place] , [address], [place] [address] Theron Wang MD, Branch Office Manager CLIA: [id number] Erythrocyte Sedimentation Rate (ESR), Automated 12 <31 mm/hr P-TSH Reviewed date:10/22/2024 03:53:57 PM Interpretation:Normal Performing Lab: Notes/Report: Test performed by [facility] [address] [place] [address] , [address], [place] [address] Theron Wang MD, Branch Office Manager CLIA: [id number] TSH 1.86 0.43-5.25 mU/L Antinuclear Antibodies (SARAH) Result Note Reviewed date:10/22/2024 03:53:57 PM Interpretation:Normal Performing Lab: Notes/Report: Test performed by [facility] [facility] [address] [place] [address] , [place] [address] Theron Wang MD, Branch Office Manager CLIA: [id number] Antinuclear Antibodies (SARAH) Result Note SEE COMMENT For positive Autoantibodies, please refer to the interpretive chart here: [email or web address] REASON FOR VISIT check up, Needs mammogram, labs, Tdap, & shingles vaccine Medications Medication SIG (Take, Route, Fr equency, Duration) Notes Start Date End Date Status Belkys Allergy 180 MG 1 tablet Swallow whole with water; do not take with fruit juices. Orally Once a day; Duration: 30 day(s) 10/15/2024 Active Vital Signs Blood pressure systolic 162 mm Hg 10/16/19 25 Blood pressure diastolic 98 mm Hg 025 Heart Rate 59 /min 10/15/2024 Height 55 in 10/15/2024 Weight 154.4 lbs 10/15/2024 BMI 35.88 kg/m2 10/15/2024 Encounters Encounter Location Date Provider Diagnosis [facility] [address] [facility] [address] [id number] 10/15/2024 Chriss Fuentes Urticaria L50.9 ; Livedo [...] Appt Details Follow Up: 4 Weeks, Reason: Progress Notes * Annia GRAYDOB: [birth year] (59 yo F)Acc No.[id number]:10/15/2024 Progress Notes Patient: Annia SANTANA Provider: Chriss Fuentes M.D. :1965 A ge:59 Y S ex:Female Date:10/15/2024 Address:[place], [id number] Subjective: * Chief Complaints: * 1 . [...] colonoscopy 07/25/2020. * Hospitalization/Major Diagno stic Procedure: sergio rollins . * Family History: F ather: 28 [...] pt stopped smoking August 19, 2006. 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 Past smoking status: yes, Smoking status: Does [...] SARAH 9 Panel Negative Negative - * [employer] IT support 10/18/2024 05:55:06 : This order was created by the Interface. Grace Otto 10/22/2024 03:53:21 PM > Left voicemail informing of normal lab results ?Lab: Antinuclear Antibodies (SARAH) Result Note (Collection Date & Time - 10/15/2024 12:54 PM)?Normal* Value Reference Range A ntinuclear Antibodies (SARAH) Result Note SEE COMMENT - * [employer] IT support 10/18/2024 05:55:06 : This order was created by the Interface. Grace Otto Demetrio 10/22/2024 03:53:21 PM > Left voicemail informing of normal lab results * Follow Up: 4 Weeks * Images: Billing Information: * Visit Code: 85542 Office Visit, Est Pt., Level 4. * Procedure Codes: * Electronic signature of Chriss Fuentes MD on 05/26/2025 at 10:58 PM EST Sign off status: Pending * Provider: Chriss Fuentes M.D. Date: 0 10/15/2024 Generated for Young pacheco/Jerzy/Clary on: 1 07/27/2024 10:58 PM EST History and Physical Notes * HPI [...]
--- OUTSIDE RECORDS SUMMARY | 2024-11-26 06:15 | XMS_ITS ---
Author Organization [facility] Address [address] [facility] [address] [place] [id number] Care Team Providers Care Squirt Machine Operator Name Role Phone Chriss Fuentes Primary Care Provider [phone] Allergies Allergen (clinical drug ingredient) Drug/Non Drug [...] Status Risk Notes Problem Irritable bowel syndrome (49021562) Irritable bowel syndrome with both constipation and diarrhea (K58.2) Active confirmed Vital Signs Blood pressure systolic 140 mm Hg 11/27/19 25 Blood pressure diastolic 90 mm Hg 025 Heart Rate 60 /min 11/26/2024 Height 55 in 11/26/2024 Weight 151.0 lbs 11/26/2024 BMI 35.09 kg/m2 11/26/2024 Encounters Encounter Location Date Provider Diagnosis [facility] [address] [place] [id number] 11/26/2024 Chriss Fuentes Skin rash R21 and [...] Appt Details Follow Up: 5 M, Reason: Progress Notes * Annia GRAYDOB: [birth year] (59 yo F)Acc No.[id number]:11/26/2024 Patient: Annia SANTANA Provider: Chriss Fuentes M.D. :1965 A ge:59 Y S ex:Female Date:11/26/2024 Address:[place], [id number] Subjective: * Chief Complaints: * 1 . [...] pt stopped smoking August 19, 2006. 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 Past smoking status: yes, Smoking status: Does [...] * Images: Billing Information: * Visit Code: 50056 Office Visit, Est Pt., Level 4. * Procedure Codes: 1036F TOBACCO NON-USER. * Electronic signature of Chriss Fuentes MD on 05/26/2025 at 10:57 PM EST Sign off status: Pending * Provider: Chriss Fuentes M.D. Date: 0 11/26/2024 Generated for Young pacheco/Jerzy/eTransmitting on: 1 07/27/2024 10:57 PM EST History and Physical Notes * [...]
--- OUTSIDE RECORDS SUMMARY | 2025-04-29 04:15 | XMS_ITS ---
Author Organization [facility] Address [address] [facility] [address] [place] [id number] Care Team Providers Care [employer] Special Education Teacher Name Role Phone Chriss Fuentes Primary Care Provider Mayda Munson Unavailable [phone] Allergies Allergen (clinical drug ingredient) Drug/Non Drug Allergy documented on EMR Reaction Allergy Type Onset Date Status Substance with sulfonamide structure and antibacterial mechanism of action (substance) Sulfa Antibiotics Unknown Drug Allergy Active Results Component Value Reference Range Notes Influenza Screen (in house) Reviewed date:04/29/2025 12:31:55 PM Interpretation: Performing Lab: Notes/Report: results neg CBC Fingerstick (in house) Reviewed date:04/29/2025 12:31:38 PM Interpretation: Performing Lab: Notes/Report: wbc 6.6 3.5 - 10 lym 37.0 15 - 50 mid 8.4 2 - 15 gran 54.6 35 - 80 rbc 4.53 3.5 - 5.5 hgb 12.9 11.5 - 16.5 hct 39.2 35 - 55 mcv 86.5 75 - 100 mch 28.4 25 - 35 mchc 32.8 31 - 38 plat 138 100 - 400 P-Comprehensive Metabolic Pa jeevan (CMP) Reviewed date:05/06/2025 02:36:15 PM Interpretation: Performing Lab: Notes/Report: Test performed by [employer], [employer] [address] [place] [address] , [address], [place] [address] Joan Yanes MD, PhD, [facility], [employer] Worker CLIA: [id number] Sodium 142 135-145 mmol/L Potassium 4.0 3.5-5.3 mmol/L Chloride 104 97-108 mmol/L CO2 25 20-32 mmol/L Glucose 95 65-99 mg/dL BUN 15 6-20 mg/dL Creatinine 0.68 0.50-1.00 mg/dL Calcium 9.4 8.6-10.4 mg/dL eGFR by Creatinine 101 >59 mL/min/1.73m2 Protein 7.3 6.0-8.3 g/dL Albumin 4.5 3.5-5.3 g/dL Alkaline Phosphatase 267 35-121 IU/L ALT (SGPT) 842 <5-47 IU/L AST (SGOT) 285 <5-40 IU/L Bilirubin, Total <0.2 <0.2-1.2 mg/dL A/G Ratio 1.6 1.1-2.5 P-CPK Reviewed date:05/06/2025 02:36:15 PM Interpretation: Performing Lab: Notes/Report: Test performed by [employer] [address] [place] [address] , [place] [address] Joan Yanes MD, PhD, [facility], [employer]s Worker CLIA: [id number] Creatine Kinase 68 20-180 U/L P-Arthritis Panel, [employer] Reviewed date:05/06/2025 02:36:15 PM Interpretation: Performing Lab: Notes/Report: Test performed by [employer] [address] [place] [address] , [facility], [place] [address] Joan Yanes MD, PhD, [facility], [employer] Worker CLIA: [id number] Erythrocyte Sedimentation Rate (ESR), Automated 25 <31 mm/hr Rheumatoid Factor 13.0 <14.1 IU/mL C-Reactive Protein (CRP) 2.19 <0.50 mg/dL Antinuclear Antibodies (SARAH) Screen, Reflex SARAH 9 Panel Negative Negative This test is performed by Multiplex Bead Immunoassay methodology. Antinuclear Antibodies (SARAH) Result Note SEE COMMENT For positive Autoantibodies, please refer to the interpretive chart here: [email or web address] [email or web address] CCP Antibodies <0.5 <0.5-3.0 U/mL P-TSH reflex to FT4 Reviewed date:05/06/2025 02:36:15 PM Interpretation: Performing Lab: Notes/Report: Test performed by [facility] [employer] [address] [facility] , [address], [place] [address] Joan Yanes MD, PhD, [facility], [employer] Worker CLIA: [id number] TSH reflex to FT4 1.21 0.43-5.25 mU/L Covid test (in house) Reviewed date:04/29/2025 12:31:47 PM Interpretation: Performing Lab: Notes/Report: Result: neg TENS- wound panel Reviewed date:05/06/2025 02:36:15 PM Interpretation:Abnormal Performing Lab: Notes/Report: Abnormal Ultrasound : Back, mass Reviewed date:05/12/2025 04:01:12 PM Interpretation:Lipomas Performing Lab: Notes/Report: Lipomas REASON FOR VISIT feeling sick Medications Medication SIG (Take, Route, Fr equency, Duration) Notes Start Date End Date Status Belkys Allergy 180 MG 1 tablet Swallow whole with water; do not take with fruit juices. Orally Once a day; Duration: 90 days 10/15/2024 Active Vital Signs Blood pressure systolic 132 mm Hg 04/29/20 25 Blood pressure diastolic 80 mm Hg 025 Heart Rate 66 /min 04/29/2025 Height 55 in 04/29/2025 Weight 160 lbs 04/29/2025 BMI 37.18 kg/m2 04/29/2025 Encounters Encounter Location Date Provider Diagnosis [facility] [address] [facility] [address] [place] [id number] 04/29/2025 Mayda Crowmartine Rash R21 ; Myalgia M79.10 ; Body aches R52 and Left flank mass R19.09 Assessments Encounter Date Diagnosis (ICD Code) Assessment Notes Treatment Notes Treatment Clinical Notes Section Notes 04/29/2025 Rash (ICD-10 - R21) 04/29/2025 Myalgia (ICD-10 - M79.10) 04/29/2025 Body aches (ICD-10 - R52) 04/29/2025 Left flank mass (ICD-10 - R19.09) Plan Of Treatment Medication Medication Name Sig Start Date Stop Date Notes Belkys Allergy 180 MG 1 tablet Swallow whole with water; do not take with fruit juices. Orally Once a day; Duration: 90 days 10/15/2024 Next Appt Details Follow Up: via phone to repo rt test results, Reason: Progress Notes * Annia GRAYDOB: [birth year] (59 yo F)Acc No.[id number]:04/29/2025 Progress Notes Patient: Annia SANTANA Provider: KELLEY Spangler :1965 A ge:59 Y S ex:Female Date:04/29/2025 Address:[place], [id number] Pcp:Chriss Fuentes Subjective: * Chief Complaints: * 1 . Feeling sick. * HPI: E NT/respiratory: Pt states these symptoms been going on for few months. Pt states she does not feel like she is sick but just she does not feel right. She had some type of illness in August and has not been the same since that time. She has developed urticaria off and on and her bowels have been abnormal. She gets body aches and chills off and on. She now has a rash around her anus that just started and is unsure what it is. 59 year old female presents with c/o headache. c/o body aches. Denies : sore throat. D enies : cough. D enies : nasal congestion. D enies : Fever. D enies : ear pain. D enies : Chest Pain. D enies : Short of Breath. D enies : chest congestion. D enies : dizziness. H PI: Patient is here today for P t states she needs refills on her meds.. * ROS: D ERMATOLOGY: no R estefanía. [...] pt stopped smoking August 19, 2006. 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 Past smoking status: yes, Smoking status: Does [...] ulfa Antibiotics. Objective: * Vitals: W t: 160, Temp: 97.8, BP: 132/80, HR: 66, Nurse: christopher, Ht: 55, BMI:37.18. * Examination: G eneral Examination: General Appearance: N AD. H EENT: u nremarkable.?Oral cavity: n o lesions, mucosa moist and WNL, no erythema. N ajdiel: s upple, no lymphadenopathy. C hest: n ormal shape and expansion. H eart: R SR. L ungs: c lear to auscultation. A bdomen: b owel sounds present, soft and nontender. N eurologic Exam: I ntact, gait normal. S kin: u rticarial rash on the arms, there is a large mass in the left flank as well that is painful. P eripheral pulses: n ormal (2+) bilaterally. E xtremities: n o leg edema. G enitalia: t here is a vesicular rash around the anus but it is not painful. Assessment: * Assessment: 1. R estefanía - R21 (Primary) 2 . M yalgia - M79.10 3 . B arron aches - R52 4 . L eft flank mass - R19.09 Plan: * Treatment: 2.?Myalgia?LAB: P-Comprehensive Metabolic Panel (CMP) (Collection Date & Time - 04/29/2025 09:36 AM)* Value Reference Range A /G Ratio 1.6 1.1-2.5 - * A lbumin 4.5 3.5-5.3 - g/dL * A lkaline Phosphatase 267 H 35-121 - IU/L * A LT (SGPT) 842 H <5-47 - IU/L * A ST (SGOT) 285 H <5-40 - IU/L * B ilirubin, Total <0.2 <0.2-1.2 - mg/dL * B UN 15 6-20 - mg/dL * C alcium 9.4 8.6-10.4 - mg/dL * C hloride 104 97-108 - mmol/L * C O2 25 20-32 - mmol/L * C reatinine 0.68 0.50-1.00 - mg/dL * G lucose 95 65-99 - mg/dL * P otassium 4.0 3.5-5.3 - mmol/L * S odium 142 135-145 - mmol/L * P rotein 7.3 6.0-8.3 - g/dL * e GFR by Creatinine 101 >59 - mL/min/1.73m2 * Mayda Munson 05/06/2025 02:36:07 PM EST >see TE ?LAB: P-CPK (Collection Date & Time - 04/29/2025 09:36 AM)* Value Reference Range C reatine Kinase 68 20-180 - U/L * Mayda Munson 05/06/2025 02:36:07 PM EST >see TE ?LAB: P-Arthritis Panel, [employer] (Collection Date & Time - 04/29/2025 09:36 AM)* Value Reference Range A ntinuclear Antibodies (SARAH) Result Note SEE COMMENT - * A ntinuclear Antibodies (SARAH) Screen, Reflex SARAH 9 Panel Negative Negative - * C CP Antibodies <0.5 <0.5-3.0 - U/mL * C -Reactive Protein (CRP) 2.19 H <0.50 - mg/dL * E rythrocyte Sedimentation Rate (ESR), Automated 25 <31 - mm/hr * R heumatoid Factor 13.0 <14.1 - IU/mL * Mayda Munson 05/06/2025 02:36:07 PM EST >see TE ?LAB: P-TSH reflex to FT4 (Collection Date & Time - 04/29/2025 09:36 AM)* Value Reference Range T SH reflex to FT4 1.21 0.43-5.25 - mU/L * Mayda Munson Mirtha 05/06/2025 02:36:07 PM EST >see TE 3.?Body aches?LAB: Influenza Screen (in house) (Collection Date & Time - 04/29/2025)* Value Reference Range r esults neg * Isis Dubois 04/29/2025 10:08:45 AM EST > Provider reviewed results while patient in office. ?LAB: CBC Fingerstick (in house) (Collection Date & Time - 04/29/2025)* Value Reference Range w bc 6.6 3.5 - 10 * l ym 37.0 15 - 50 * m id 8.4 2 - 15 * g ran 54.6 35 - 80 * r bc 4.53 3.5 - 5.5 * h gb 12.9 11.5 - 16.5 * h ct 39.2 35 - 55 * m cv 86.5 75 - 100 * m ch 28.4 25 - 35 * m chc 32.8 31 - 38 * p lat 138 100 - 400 * Isis Dubois 04/29/2025 10:09:18 AM EST > Provider reviewed results while patient in office. ?LAB: Covid test (in house) (Collection Date & Time - 04/29/2025)* Value Reference Range R esult: neg * Isis Dubois 04/29/2025 10:09:01 AM EST > Provider reviewed results while patient in office. 4.?Left flank mass?Imaging: Ultrasound : Back, mass (Performed Date - 05/09/2025)?Lipomas* Mayelin Scales 04/29/2025 01: 35:28 PM EST > faxed to [facility] JuneMayda Munson Mirtha 05/12/2025 04:01:08 PM EST >see TE * Procedure Codes: 3 6416 CAPILLARY BLOOD DRAW, 41018 CBC WITH AUTO DIFF, 57976 Flu Test- Nasal Swab, Modifiers: QW , 61109 COVID TEST IN HOUSE, Modifiers: QW * Follow Up: v ia phone to report test results * Images: Billing Information: * Visit Code: 61887 Office Visit, Est Pt., Level 4. * Procedure Codes: 88588 CAPILLARY BLOOD DRAW. 02110 CBC WITH AUTO DIFF. 85888 Flu Test- Nasal Swab. Modifiers: QW 48985 COVID TEST IN HOUSE. Modifiers: QW * Electronic signature of KELLEY Martinez on 05/26/2025 at 10:58 PM EST Sign off status: Pending * Provider: KELLEY Spangler Date: 06/29/2024 Generated for Young pacheco/Jerzy/eTransmitting on: 07/27/2024 10:58 PM EST History and Physical Notes * HPI (History of Present Illness) Category Sub-Category Detail Notes Category Not es ENT/respiratory sore throat ear pain Short of Breath Chest Pain cough Fever headache chest congestion nasal congestion dizziness body aches HPI Patient is here today for Pt states she n eeds refills on her meds. Examination Category Sub-Category Detail Notes Category Not es General Examination HEENT: unremarkable Heart: RSR Lungs: clear to auscultatio n Abdomen: bowel sounds present , soft and nontender Extremities: no leg edema General Appearance: NAD Skin: urticarial rash on t he arms, there is a large mass in the left flank as well that is painful Neurologic Exam: Intact, gait normal Neck: supple, no lymphaden opathy Oral cavity: no lesions, mucosa m oist and WNL, no erythema Peripheral pulses: normal (2+) bilatera lly Genitalia: there is a vesicular rash around the anus but it is not painful Chest: normal shape and exp ansion
--- OUTSIDE RECORDS SUMMARY | 2025-05-13 05:00 | XMS_ITS ---
[facility] Address [address] [place] [id number] Care Team Providers Care Head Of Digital Advertising & Integration Name Role Phone Chriss Fuentes Primary Care Provider [phone] Mayda Munson Unavailable [phone] Allergies Allergen (clinical drug ingredient) Drug/Non Drug Allergy documented on EMR Reaction Allergy Type Onset Date Status Substance with sulfonamide structure and antibacterial mechanism of action (substance) Sulfa Antibiotics Unknown Drug Allergy Active Results Component Value Reference Range Notes P-Alpha Gal, Galactose-Alpha -1,3-Galactose (Alpha-Gal) IgE Reviewed date:05/18/2025 04:40:18 PM Interpretation:Normal Performing Lab: Notes/Report: Test performed by [employer] [address] [place] [address] , [address], [place] [address] Joan Yanes MD, PhD, [facility], Warehouse Order Picker CLIA: [id number] Allergen, Food, Alpha Galactose (Alpha-Gal) IgE <0.1 <0.10-0.34 kU/L P-Amylase Reviewed date:05/18/2025 04:40:18 PM Interpretation:Normal Performing Lab: Notes/Report: Test performed by [employer] [address] [place] [address] [address], [place] [address] Joan Yanes MD, PhD, [facility], Warehouse [employer] CLIA: [id number] Amylase 53 28-100 U/L P-Comprehensive Metabolic Pa jeevan (CMP) Reviewed date:05/18/2025 04:40:18 PM Interpretation:BUN 34, ALT 552, AST 177 Performing Lab: Notes/Report: Test performed by [employer] [address] [place] [address] , [address], [place] [address] Joan Yanes MD, PhD, [facility], Warehouse Order Picker CLIA: [id number] Sodium 136 135-145 mmol/L Potassium 4.7 3.5-5.3 mmol/L Chloride 101 97-108 mmol/L CO2 26 20-32 mmol/L Glucose 82 65-99 mg/dL BUN 34 6-20 mg/dL Creatinine 0.74 0.50-1.00 mg/dL Calcium 9.6 8.6-10.4 mg/dL eGFR by Creatinine 94 >59 mL/min/1.73m2 Protein 7.9 6.0-8.3 g/dL Albumin 4.8 3.5-5.3 g/dL Alkaline Phosphatase 141 41-145 IU/L ALT (SGPT) 552 <5-47 IU/L AST (SGOT) 177 <5-40 IU/L Bilirubin, Total <0.2 <0.2-1.2 mg/dL A/G Ratio 1.5 1.1-2.5 Z-Q-Jqjzhkug Protein (CRP) Reviewed date:05/18/2025 04:40:18 PM Interpretation:Normal Performing Lab: Notes/Report: Test performed by [employer] [address] , [place] [address] Joan Yanes MD, PhD, [facility], Warehouse Order Picker CLIA: [id number] C-Reactive Protein (CRP) 0.15 <0.50 mg/dL P-Ferritin Reviewed date:05/18/2025 04:40:18 PM Interpretation:Normal Performing Lab: Notes/Report: Test performed by [employer] [address] [place] [address] , [address], [place] [address] Jona Yanes MD, PhD, AP, Warehouse [employer] CLIA: [id number] Ferritin 47.1 13.0-301.0 ng/mL P-Hepatitis Acute Profile Reviewed date:05/18/2025 04:40:18 PM Interpretation:Normal Performing Lab: Notes/Report: Test performed by [employer] [address] [place] [address] , [address], [place] [address] Joan Yanse MD, PhD, AP, Ware[employer] CLIA: [id number] Hepatitis A Antibody, IgM Nonreactive Nonreactive Hepatitis B Core Antibody (HBcAb) IgM Nonreactive Nonreactive Hepatitis B Surface Antigen (HBsAg) Nonreactive Nonreactive Hepatitis C Antibody (HCV) IgG Nonreactive Nonreactive P-Iron Reviewed date:05/18/2025 04:40:18 PM Interpretation:Normal Performing Lab: Notes/Report: Test performed by [employer] [address] [place] [address] [place] [address] Joan Yanes MD, PhD, [facility], Warehouse Order Picker CLIA: [id number] Iron 51 37-145 ug/dL P-Lipase Reviewed date:05/18/2025 04:40:18 PM Interpretation:Normal Performing Lab: Notes/Report: Test performed by [employer] [address] [place] [address] Joan Yanes MD, PhD, [employer], Warehouse Order Picker CLIA: [id number] Lipase 40.4 13.0-60.0 U/L Allergy Footnotes Reviewed date:05/18/2025 04:40:18 PM Interpretation:Normal Performing Lab: Notes/Report: Test performed by [employer] [address] [place] [address] [place] [address] Joan Yanes MD, PhD, FC, Warehouse Order Picker CLIA: [id number] Allergy Footnotes SEE COMMENT Reference Ranges and Clinical Implications of Specific IgE Class 0 <0.10 kU/L No significant level detected Class 1 0.10-0.34 kU/L Clinical relevance undetermined Class 2 0.35-0.69 kU/L Low level, ongoing sensitization Class 3 0.70-3.49 kU/L Moderate level, stronger ongoing sensitization Class 4 3.50-17.49 kU/L High level of sensitization Class 5 17.50-49.99 kU/L Very high level of sensitization Class 6 >=50.00 kU/L Very high level of sensitization REASON FOR VISIT 2 weeks Medications Medication SIG (Take, Route, Fr equency, Duration) Notes Start Date End Date Status Belkys Allergy 180 MG 1 tablet Swallow whole with water; do not take with fruit juices. Orally Once a day; Duration: 90 days 10/15/2024 Active Clindamycin HCl 300 MG 1 capsule Orally every 8 hrs; Duration: 7 days 05/04/2025 Active Problems Problem Type SNOMED Code ICD Code Onset Dates Problem Status W/U Status Risk Notes Problem C-reactive protein abnormal (050571164) Elevated C-reactive protein (CRP) (R79.82) Active confirmed Vital Signs Blood pressure systolic 132 mm Hg 05/13/20 25 Blood pressure diastolic 76 mm Hg 025 Heart Rate 70 /min 05/13/2025 Height 55 in 05/13/2025 Weight 154.8 lbs 05/13/2025 BMI 35.98 kg/m2 05/13/2025 Encounters Encounter Location Date Provider Diagnosis [facility] [address] [place], [place] [id number] 05/13/2025 Mayda Munson Rash R21 ; Myalgia M79.10 ; Body aches R52 ; Left flank mass R19.09 ; Elevated LFTs R79.89 and Elevated C-reactive protein (CRP) R79.82 Assessments Encounter Date Diagnosis (ICD Code) Assessment Notes Treatment Notes Treatment Clinical Notes Section Notes 05/13/2025 Rash (ICD-10 - R21) 05/13/2025 Myalgia (ICD-10 - M79.10) 05/13/2025 Body aches (ICD-10 - R52) 05/13/2025 Left flank mass (ICD-10 - R19.09) 05/13/2025 Elevated LFTs (ICD-10 - R79.89) 05/13/2025 Elevated C-reactive protein (CRP) (ICD-10 - R79.82) Plan Of Treatment Next Appt Details Follow Up: via phone to repo rt test results, Reason: Progress Notes * Annia GRAYDOB: [birth year] (59 yo F)Acc No.[id number]:05/13/2025 Progress Notes Patient: Annia SANTANA Provider: KELLEY Spangler :1965 A ge:59 Y S ex:Female Date:05/13/2025 Address[place], [id number] Pcp:Chriss Fuentes Subjective: * Chief Complaints: * 1 . 2 weeks. * HPI: H PI: 59 year old female presents with c/o Patient is here today for?here for 2 week follow up after appointment for not feeling well. Pt states she is feeling better other than just being tired. Pt states she has 3 days left taking Clindamycin. Her rash is gone.. * ROS: D ERMATOLOGY: no R estefanía. [...] alive, diabetes both brother and sister. C cathyen: alive. 1 brother(s) , 1 sister(s) . 1 daughter(s) . . * Social History: C URRENT TOBACCO USE: No . C affeine: yes, frequency:. Home smoke detector use: yes. Marital Status: Single. New since last visit: pt stopped smoking August 19, 2006. 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 Past smoking status: yes, Smoking status: Does not smoke Pt quit smoking in 2006. Alcohol: No, once a year, mixed drink. Sexually active: no.. * Medications: T aking Belkys Allergy 180 MG Tablet 1 tablet Swallow whole with water; do not take with fruit juices. Orally Once a day , Taking Clindamycin HCl 300 MG Capsule 1 capsule Orally every 8 hrs , Medication List reviewed and reconciled with the patient * Allergies: S ulfa Antibiotics. Objective: * Vitals: W t: 154.8, Temp: 98.2, BP: 132/76, HR: 70, Nurse: sf, Ht: 55, BMI:35.98. * Examination: G eneral Examination: General Appearance: [...] Exam: I ntact, gait normal. S kin: n ormal, no rash. P eripheral pulses: n ormal (2+) bilaterally. E xtremities: n o leg edema. Assessment: * Assessment: 1. R estefanía - R21 (Primary) 2 . M yalgia - M79.10 3 . B arron aches - R52 4 . L eft flank mass - R19.09 5 . E levated LFTs - R79.89 6 . E levated C-reactive protein (CRP) - R79.82 Plan: * Treatment: Value Reference Range G qvdapisj-Crlxy-8,3-Galactose (Alpha-Gal) IgE <0.1 <0.10-0.34 - kU/L * Fede Munsondawood Shannon 05/13/2025 1 0:45:21 AM EST >room 4, Kita Stevens 05/18/2025 04:40:11 PM EST > See phone encounter 2.?Elevated LFTs?LAB: P-Amylase (Collection Date & Time - 05/13/2025 09:47 AM)?Normal* Value Reference Range A mylase 53 28-100 - U/L * Jeimy Mayda Shannon 05/13/2025 1 0:45:21 AM EST >room 4, Kita Stevens 05/18/2025 04:40:11 PM EST > See phone encounter ?LAB: P-Comprehensive Metabolic Panel (CMP) (Collection Date & Time - 05/13/2025 09:47 AM)?BUN 34, ALT 552, AST 177* Value Reference Range A /G Ratio 1.5 1.1-2.5 - * A lbumin 4.8 3.5-5.3 - g/dL * A lkaline Phosphatase 141 41-145 - IU/L * A LT (SGPT) 552 H <5-47 - IU/L * A ST (SGOT) 177 H <5-40 - IU/L * B ilirubin, Total <0.2 <0.2-1.2 - mg/dL * B UN 34 H 6-20 - mg/dL * C alcium 9.6 8.6-10.4 - mg/dL * C hloride 101 97-108 - mmol/L * C O2 26 20-32 - mmol/L * C reatinine 0.74 0.50-1.00 - mg/dL * G lucose 82 65-99 - mg/dL * P otassium 4.7 3.5-5.3 - mmol/L * S odium 136 135-145 - mmol/L * P rotein 7.9 6.0-8.3 - g/dL * e GFR by Creatinine 94 >59 - mL/min/1.73m2 * Mayda Munson 05/13/2025 1 0:45:21 AM EST >room 4, Kita Stevens 05/18/2025 04:40:11 PM EST > See phone encounter ?LAB: P-Ferritin (Collection Date & Time - 05/13/2025 09:47 AM)?Normal* Value Reference Range F erritin 47.1 13.0-301.0 - ng/mL * Mayda Munson 05/13/2025 1 0:45:21 AM EST >room 4, Kita Stevens 05/18/2025 04:40:11 PM EST > See phone encounter ?LAB: P-Hepatitis Acute Profile (Collection Date & Time - 05/13/2025 09:47 AM)?Normal* Value Reference Range H epatitis A Antibody, IgM Nonreactive Nonreactive - * H epatitis B Core Antibody (HBcAb) IgM Nonreactive Non reactive - * H epatitis B Surface Antigen (HBsAg) Nonreactive Nonre active - * H epatitis C Antibody (HCV) IgG Nonreactive Nonreactiv e - * Mayda Munson 05/13/2025 1 0:45:21 AM EST >room 4, Kita Stevens 05/18/2025 04:40:11 PM EST > See phone encounter ?LAB: P-Iron (Collection Date & Time - 05/13/2025 09:47 AM)?Normal* Value Reference Range I danilo 51 37-145 - ug/dL * Mayda Munson 05/13/2025 1 0:45:21 AM EST >room 4, Kita Stevens 05/18/2025 04:40:11 PM EST > See phone encounter ?LAB: P-Lipase (Collection Date & Time - 05/13/2025 09:47 AM)?Normal* Value Reference Range L ipase 40.4 13.0-60.0 - U/L * Mayda Munson 05/13/2025 1 0:45:21 AM EST >room 4, Kita Stevens 05/18/2025 04:40:11 PM EST > See phone encounter 3.?Elevated C-reactive protein (CRP)?LAB: F-U-Wuxazfnh Protein (CRP) (Collection Date & Time - 05/13/2025 09:47 AM)?Normal* Value Reference Range C -Reactive Protein (CRP) 0.15 <0.50 - mg/dL * Mayda Munson 05/13/2025 1 0:45:21 AM EST >room 4, Kita Stevens 05/18/2025 04:40:11 PM EST > See phone encounter * Labs: * L ab: Allergy Footnotes (Collection Date & Time - 05/13/2025 09:47 AM) N ormal Value Reference Range A llergy Footnotes SEE COMMENT - * [facility], IT support 05/16/2025 03:55:09 : This order was created by the Interface. Kita Chan 05/18/2025 04:40:11 PM EST > See phone encounter * Procedure Codes: 3 075F SYST BP GE 130 - 139MM HG, 3078F DIAST BP < 80 MM HG * Follow Up: v ia phone to report test results * Images: Billing Information: * Visit Code: 58436 Office Visit, Est Pt., Level 4. * Procedure Codes: 3075F SYST BP GE 130 - 139MM HG. 3078F DIAST BP < 80 MM HG. * Electronic signature of KELLEY Martinez on 05/26/2025 at 10:58 PM EST Sign off status: Pending * Provider: KELLEY Spangler Date: 07/14/2024 Generated for Young pacheco/Jerzy/eTransmitting on: 07/27/2024 10:58 PM EST History and Physical Notes * HPI (History of Present Illness) Category Sub-Category Detail Notes Category Not es HPI Patient is here today for here f or 2 week follow up after appointment for not feeling well. Pt states she is feeling better other than just being tired. Pt states she has 3 days left taking Clindamycin. Her rash is gone. Examination Category Sub-Category Detail Notes Category Not es General Examination HEENT: unremarkable Heart: RSR Lungs: clear to auscultatio n Abdomen: bowel sounds present , soft and nontender Extremities: no leg edema General Appearance: NAD Skin: normal, no rash Neurologic Exam: Intact, gait normal Neck: supple, no lymphaden opathy Oral cavity: no lesions, mucosa m oist and WNL, no erythema Peripheral pulses: normal (2+) bilatera lly Chest: normal shape and exp ansion
[2025-05-26 22:57] VITALS: BP 163/88; PULSE 98; RESP 20; TEMP 36.8; O2SAT 100; BMI 25.7
--- NOTE | 2025-05-26 22:57 | ED_ITS ---
Discharge Plan Disposition Patient Disposition: Home, Self-Care Prescriptions Prescriptions: New methocarbamol 500 mg tablet 1,000 mg PO Q6H PRN (Reason: pain) Qty: 30 0RF No Action amoxicillin-pot clavulanate 875-125 mg tablet 1 tab PO BID 10 Days Qty: 20 0RF methylprednisolone [Medrol (Nikos)] 4 mg tablets,dose pack See Rx Instructions PO PER PKG DIR Qty: 21 0RF Rx Instructions: PO PER PKG DIR for 6 days benzonatate 100 mg capsule 100 mg PO TID PRN (Reason: cough) Qty: 30 0RF guaifenesin [Mucinex] 1,200 mg tablet extended release 12hr 1,200 mg PO BID Qty: 20 0RF Referrals Follow up/Referrals: Giovanni Guerrero II, MD [Staff Physician, Gastroenterology] - See instructions Lennie Fuentes MD [Primary Care Provider, Medical] - See instructions Activity Restrictions/Add. Instructions Additional Instructions/Restrictions: Recommend calling to schedule follow-up with our data processing systems project planner for further evaluation of your chronic diarrhea. Recommend discussing rheumatology follow- up with your PCP. Clinical Impressions Clinical Impression: Myalgia, Arthralgia, Headache, Chronic diarrhea Print Language Print Language: Haitian Discharge ED Provider: Familia Cardenas General Adult HPI General Chief complaint: PAIN Stated complaint: hurting all over, chills, headache Time Seen by Provider: 05/26/25 22:57 History of Present Illness HPI narrative: 59-year-old female presents for multiple complaints. She reports that over the last few weeks she has been having intermittent days with arthralgia, myalgias, headache. She has also been having chronic diarrhea for the last several months. She denies fever at home. She reports that she has been evaluated by her PCP but they have not yet figured out what is wrong. She has had her liver enzymes mildly elevated. She has not seen rheumatology or GI yet. She reports that her muscles hurt like she has the flu, but she does not feel like she has the flu. She denies any urinary symptoms. Denies any cough shortness of breath or abdominal pain. Reports intermittent hives and rash over the last several months. No weight loss. No history of cancer. Related Data Previous Rx's ?Medication ?Instructions ?Recorded amoxicillin 875 mg-potassium 1 tab PO BID 10 days #20 tabs 09/10/24 clavulanate 125 mg tablet benzonatate 100 mg capsule 100 mg PO TID PRN cough #30 caps 09/10/24 guaifenesin 1,200 mg tablet, 1,200 mg PO BID congestio n #20 tabs 09/10/24 extended release 12 hr (Mucinex) methylprednisolone 4 mg tablets in See Rx Instructions PO PER PKG DIR 09/10/24 a dose pack (Medrol (Nikos)) #21 tabs methocarbamol 500 mg tablet 1,000 mg (2 x 500 mg) PO Q 6H PRN 05/27/25 pain #30 tabs Allergies Allergy/AdvReac Type Severity Reaction Status Date / Time Sulfa (Sulfonamide Allergy Verified 09/10/24 09:54 Antibiotics) [facility] Disclaimer: The information contained in this section may have been updated after the patient was seen, as this information can be updated by other users. Medical History (Updated 05/27/25 @ 00:40 by Familia Cardenas MD) Sinusitis Social History Smoking Status: Never smoker alcohol intake: current alcohol intake frequency: a few times a month substance use type: marijuana current occupational status: employed Travel in the last 8 weeks?: None caffeine: Yes Have you lived/traveled outside [place] in past 30 days?: No Contact w/someone who lives/traveled outside [place] past 30 days?: No Exposure to someone with infectious disease in past 14 days?: No Do you have a fever (greater than 100.4 F or 38 C)?: No Have you tested positive for COVID-19?: No Exposed to someone with COVID-19 in past 14 days?: No Do you have a sore throat?: No Do you have a cough?: No Do you have any weakness?: No Do you have any diarrhea?: No Are you experiencing any unusual bleeding?: No Do you have any muscle aches/pain?: No Do you have any abdominal pain?: No Are you experiencing loss of taste or smell?: No Other Medical History Have you received the Flu Vaccine for this season: No Have you received the Pneumonia Vaccine: No ROS Obtained: Yes All systems reviewed & no additional complaints except as documented Physical Exam General General appearance: alert and in no apparent distress Head Head exam: atraumatic and normocephalic Eye Eye exam: Present normal appearance, PERRL and EOMI ENT ENT exam: Present normal oropharynx and normal external ear exam Neck Neck exam: Present normal inspection and full ROM; Absent lymphadenopathy Chest Chest inspection: Present normal inspection and symmetric chest wall rise; Absent tenderness Respiratory Respiratory exam: Present normal lung sounds bilaterally; Absent respiratory distress Cardiovascular Cardiovascular exam: Present regular rate and normal rhythm Abdominal Exam Abdominal exam: Present soft; Absent distention, tenderness or guarding Extremities Exam Extremities exam: Present normal inspection; Absent edema or joint swelling Back Exam Back exam: Present normal inspection; Absent tenderness Neurological Exam Neurological exam: Present alert and oriented X3; Absent motor sensory deficit Psychiatric Psychiatric exam: Present normal affect and normal mood Skin Skin exam: Present warm, dry and normal color Lymphatic Lymphatic Findings: no adenopathy Medical Decision Making Medical Records Medical records reviewed: Yes I reviewed the patient's medical records. Screening: Per USPSTF and CDC recommendations, given the prevalence of disease in our region, it is our hospital?s policy to screen for HIV and viral Hepatitis for all patients aged 18 and over and those with ongoing risk factors. Giuseppe Inquiry Pt receiving controlled substance: No Giuseppe was queried for this patient: No Vital Signs: 05/26/25 22:57 05/26/25 23:00 05/27/25 00:47 Temperature 98.2 F 97.8 F Temperature Source Oral Oral Pulse Rate 97 H 74 Pulse Rate [Right Radial] 98 H Respiratory Rate 20 14 Blood Pressure 151/72 H 129/69 Blood Pressure [Right Radial Artery] 163/88 H Blood Pressure Mean [Right Radial Artery] 113 Blood Pressure Source Automatic Cuff Blood Pressure Source [Right Radial Artery] Automatic Cuff Blood Pressure Position Supine Blood Pressure Position [Right Radial Artery] Sitting 02 Sat by Pulse Oximetry 100 98 Oxygen Delivery Method Room Air Room Air Lab Data Lab results reviewed: Yes I reviewed the patient's lab results. Lab Results 05/26/25 22:56: SARS-CoV-2 (PCR) Not detected, Influenza A Untype (PCR) Not detected, Influenza Type B (PCR) Not detected 05/26/25 23:24: WBC 11.2 H, RBC 4.81, Hgb 13.3, Hct 41.1, MCV 85.4, MCH 27.7, MCHC 32.4, RDW 14.0, Plt Count 230, MPV 8.8, Neut % (Auto) 88.0 H, Lymph % (Auto) 4.7 L, Leon % (Auto) 6.3, Eos % (Auto) 0.4, Baso % (Auto) 0.4, Neut # (Auto) 9.8 H, Lymph # (Auto) 0.5 L, Leon # (Auto) 0.7, Eos # (Auto) 0.1, Baso # (Auto) 0.0, Total Counted 100, Neutrophils % (Manual) 71, Band Neutrophils % 14 H, Lymphocytes % (Manual) 9 L, Monocytes % (Manual) 5, Eosinophils % (Manual) 1, ESR 13, Sodium 135 L, Potassium 3.9, Chloride 104, Carbon Dioxide 22, Anion Gap 12.9, BUN 13, Creatinine 0.80, Estimated Creat Clear 83, Estimated GFR 74, Est GFR ( Amer) 89, Glucose 112 H, Calcium 9.1, Magnesium 1.9, Total Bilirubin 0.7, AST 171 H, ALT 295 H, Alkaline Phosphatase 86, Total Creatine Kinase 77, C-Reactive Protein 30.2 H, Total Protein 8.0, Albumin 4.8, Globulin 3.2, Albumin/Globulin Ratio 1.5, HCV Ab JUAQUIN w/Rflx PCR Qn Negative, HIV Ag/Ab Combo Qual Negative 05/26/25 23:47: Urine Color Yellow, Urine Appearance Clear, Urine pH 6.0, Ur Specific [place] <= 1.005, Urine Protein Negative, Urine Glucose (UA) Negative, Urine Ketones Negative, Urine Blood 1+ A, Urine Nitrate Negative, Urine Bilirubin Negative, Urine Urobilinogen 0.2, Ur Leukocyte Esterase Negative, Urine RBC 3-5, Urine WBC Occasional, Ur Squamous Epith Cells Occasional, Urine Bacteria Trace, Urine Mucus 1+ 05/26/25 23:24 05/26/25 23:24 Orders (Tests/Meds): ED MEDICATIONS Discontinued Medications Generic Name Dose Route Start Last Admin Trade Name Freq PRN Reason Stop Dose Admin Acetaminophen 1,000 mg 05/26/25 23:12 05/26/25 23:28 Acetaminophen 500mg Tab PO 05/26/25 23:13 1,000 mg ONCE ONE Administration Sodium Chloride 1,000 mls @ 999 mls/hr 05/26/25 23:15 05/27/25 00:41 Sod Chlor 0.9% 1000ml Bag IV 05/27/25 00:15 Infused .Q1H1M YASH Infusion Ketorolac Tromethamine 30 mg 05/26/25 23:12 05/26/25 23:31 Ketorolac 30mg/Ml Vial IV 05/26/25 23:13 30 mg ONCE ONE Administration Methocarbamol 1,000 mg 05/26/25 23:12 05/26/25 23:28 Methocarbamol 500mg Tablet PO 05/26/25 23:13 1,000 mg ONCE ONE Administration Prochlorperazine Edisylate 10 mg 05/26/25 23:12 05/26/25 23:32 Prochlorperazine 10mg/2ml Vial IV 05/26/25 23:13 10 mg ONCE ONE Administration ORDERS Category Date Time Status CBC w/Auto Diff [Complete Blood Count Auto Diff] Stat Lab 05/26/25 23:24 Completed CK [Creatine Kinase] Stat Lab 05/26/25 23:24 Completed CMP [Comprehensive Metabolic Panel] Stat Lab 05/26/25 23:24 Completed CRP [C-Reactive Protein] Stat Lab 05/26/25 23:24 Completed ESR [Erythrocyte Sedimentation Rate] Stat Lab 05/26/25 23:24 Completed HIV Combo Routine Lab 05/26/25 23:24 Completed Hepatitis C Ab Qual. W/ RFX Routine Lab 05/26/25 23:24 Completed Magnesium Stat Lab 05/26/25 23:24 Completed Rapid PCR Covid and Flu A/B Stat Lab 05/26/25 22:56 Completed UA [Urinalysis and Microscopic] Stat Lab 05/26/25 23:47 Completed Medical Decision Narrative: 59-year-old female with no significant past medical history presents for multiple acute on chronic symptoms as documented above.. History was obtained via interactive discussion with patient. On arrival, patient is [afebrile, hemodynamically stable, satting appropriately, alert, oriented x4, GCS 15], moving all extremities spontaneously. Full physical exam performed and significant for clear lungs bilaterally, no significant lymphadenopathy, no abdominal tenderness, no rash currently. No visible swelling in the joints. Differential includes but is not limited to rheumatologic conditions such as lupus, rheumatoid arthritis, dermatomyositis, polymyositis, viral infection, fibromyalgia, celiac, etc. Patient was given Tylenol, Toradol, Robaxin, Compazine for treatment of headache and arthralgias. Workup initiated including CBC CMP ESR CRP CK viral swab and urine. On re-evaluation, patient reports marked symptomatic improvement. Laboratory workup independently interpreted by me and significant for minimal leukocytosis, normal ESR, CRP elevated at 30. AST and ALT moderately elevated. Urinalysis negative. COVID flu negative.. CT imaging was considered, but deemed unnecessary due to low clinical utility, symptomatic improvement.. Given patient history, exam and workup, patient's presentation most likely represents some sort of undiagnosed rheumatologic condition. Recommend she speak with her PCP about rheumatology follow-up. I also gave her information for GI follow-up to evaluate her chronic diarrhea as a GI source for her systemic symptoms is certainly possible. Patient is discharged in stable condition with prescription for Robaxin. Procedures Risk/Benefits of Procedure(s) Were Explained: Yes Critical Care Critical Care Time Critical Care Time: No
--- OUTSIDE RECORDS SUMMARY | 2025-05-26 22:58 | XMS_ITS | Patient Health Record ---
[facility] Organization [facility] Address [address] [facility] [address] [place] [id number] Care Team Providers Care Audiovisual Librarian Name Role Phone Chriss Fuentes Primary Care Provider [phone] Jerry Isaac Unavailable [phone] Mayda Munson Unavailable [phone] Allergies Allergen (clinical drug ingredient) Drug/Non Drug [...] Interpretation: Performing Lab: Notes/Report: Test performed by [facility] [address] [place] [address] , [address], [place] [address] Joan Yanes MD, PhD, AP, [facility] CLIA: [id number] Sodium 142 135-145 mmol/L Potassium 4.0 3.5-5.3 [...] Interpretation: Performing Lab: Notes/Report: Test performed by [facility] [address] [place] [address] , [address], [place] [address] Joan Yanes MD, PhD, [facility], [place] CLIA: [id number] Creatine Kinase 68 20-180 U/L P-Arthritis Panel, [employer] Reviewed date:05/06/2025 02:36:15 PM Interpretation: Performing Lab: Notes/Report: Test performed by [facility] [address] [place] [address] , [address], [place] [address] Joan Yanes MD, PhD, [facility], [place] CLIA: [id number] Erythrocyte Sedimentation Rate (ESR), Automated 25 <31 mm/hr Rheumatoid Factor 13.0 <14.1 IU/mL C-Reactive Protein (CRP) 2.19 <0.50 mg/dL Antinuclear Antibodies (SARAH) Screen, Reflex SARAH 9 Panel Negative Negative This test is performed by Multiplex Bead Immunoassay methodology. Antinuclear Antibodies (SARAH) Result Note SEE COMMENT For positive Autoantibodies, please refer to the interpretive chart here: [email or web address] CCP Antibodies <0.5 <0.5-3.0 U/mL P-TSH reflex to FT4 Reviewed date:05/06/2025 02:36:15 PM Interpretation: Performing Lab: Notes/Report: Test performed by [facility] [address] [place] [address] , [place] [address] Joan Yanes MD, PhD, [facility], [place] CLIA: [id number] TSH reflex to FT4 1.21 0.43-5.25 mU/L Covid test (in house) Reviewed date:04/29/2025 12:31:47 PM Interpretation: Performing Lab: Notes/Report: Result: neg TENS- wound panel Reviewed date:05/06/2025 02:36:15 PM Interpretation:Abnormal Performing Lab: Notes/Report: Abnormal Ultrasound : Back, mass Reviewed date:05/12/2025 04:01:12 PM Interpretation:Lipomas Performing Lab: Notes/Report: Lipomas P-Alpha Gal, Galactose-Alpha -1,3-Galactose (Alpha-Gal) IgE Reviewed date:05/18/2025 04:40:18 PM Interpretation:Normal Performing Lab: Notes/Report: Test performed by [facility] [address] , [place] [address] Joan Yanes MD, PhD, [facility], [place] CLIA: [id number] Allergen, Food, Alpha Galactose (Alpha-Gal) IgE <0.1 <0.10-0.34 kU/L P-Amylase Reviewed date:05/18/2025 04:40:18 PM Interpretation:Normal Performing Lab: Notes/Report: Test performed by [facility] [address] , [facility] [place] [address] Joan Yanes MD, PhD, [facility], [place] CLIA: [id number] Amylase 53 28-100 U/L P-Comprehensive Metabolic Pa jeevan (CMP) Reviewed date:05/18/2025 04:40:18 PM Interpretation:BUN 34, ALT 552, AST 177 Performing Lab: Notes/Report: Test performed by [facility] [address] , [address], [place] [address] Joan Yanes MD, PhD, [facility], [place] CLIA: [id number] Sodium 136 135-145 mmol/L Potassium 4.7 3.5-5.3 [...] <0.2 <0.2-1.2 mg/dL A/G Ratio 1.5 1.1-2.5 F-X-Qckcbngh Protein (CRP) Reviewed date:05/18/2025 04:40:18 PM Interpretation:Normal Performing Lab: Notes/Report: Test performed by [facility] [address] [place] [address] , [place] [address] Joan Yanes MD, PhD, [facility], [place] CLIA: [id number] C-Reactive Protein (CRP) 0.15 <0.50 mg/dL P-Ferritin Reviewed date:05/18/2025 04:40:18 PM Interpretation:Normal Performing Lab: Notes/Report: Test performed by [facility] [address] [place] [address] , [facility] [place] [address] Joan Yanes MD, PhD, [facility], [place] CLIA: [id number] Ferritin 47.1 13.0-301.0 ng/mL P-Hepatitis Acute Profile Reviewed date:05/18/2025 04:40:18 PM Interpretation:Normal Performing Lab: Notes/Report: Test performed by [facility] [address] [place] [address] [place] [place] [address] Joan Yanes MD, PhD, [facility], [place] CLIA: [id number] Hepatitis A Antibody, IgM Nonreactive Nonreactive Hepatitis B Core Antibody (HBcAb) IgM Nonreactive Nonreactive Hepatitis B Surface Antigen (HBsAg) Nonreactive Nonreactive Hepatitis C Antibody (HCV) IgG Nonreactive Nonreactive P-Iron Reviewed date:05/18/2025 04:40:18 PM Interpretation:Normal Performing Lab: Notes/Report: Test performed by [facility] [address] [place] [address] , [place] [address] Joan Yanes MD, PhD, [facility], [place] CLIA: [id number] Iron 51 37-145 ug/dL P-Lipase Reviewed date:05/18/2025 04:40:18 PM Interpretation:Normal Performing Lab: Notes/Report: Test performed by [facility] [address] , [place] [address] Joan Yanes MD, PhD, [facility], [place] CLIA: [id number] Lipase 40.4 13.0-60.0 U/L Allergy Footnotes Reviewed date:05/18/2025 04:40:18 PM Interpretation:Normal Performing Lab: Notes/Report: Test performed by [facility] [address] [place] [address] , [place] [address] Joan Yanes MD, PhD, [facility], [place] CLIA: [id number] Allergy Footnotes SEE COMMENT Reference Ranges and [...] >=50.00 kU/L Very high level of sensitization Cologuard Reviewed date:02/03/2025 03:49:26 PM Interpretation:Negative Performing Lab: Notes/Report: Negative Mammogram Reviewed date:01/17/2025 04:29:12 PM Interpretation:Negative Performing Lab: Notes/Report: Negative result Negative H-Urea Breath Test Reviewed date:10/22/2024 03:53:57 PM Interpretation:Normal Performing Lab: Notes/Report: Patient Height (inches): 66.00 Patient Weight (pounds): 150 HPYBREATHR Negative Negative Performed at: [address] [id number] Clinical Lab Assistant: Mckay Monet PhD, Phone: [phone] P-Antinuclear Antibodies (AN A) Screen, Reflex SARAH 9 Panel Reviewed date:10/22/2024 03:53:57 PM Interpretation:Normal Performing Lab: Notes/Report: Test performed by [facility] [address] [place] [address] , [address], [place] [address] Theron Wang MD, [facility] CLIA: [id number] Antinuclear Antibodies (SARAH) Screen, Reflex SARAH 9 Panel Negative Negative This test is performed by Multiplex Bead Immunoassay methodology. P-CBC with Diff plus Absolut e Counts Reviewed date:10/22/2024 03:53:57 PM Interpretation:Normal Performing Lab: Notes/Report: Test performed by [facility] [address] [place] [address] , [address], [place] [address] Theron Wang MD, [facility] CLIA: [id number] WBC 6.0 3.8-11.5 K/uL Red Blood Cell [...] Interpretation:satisfactory Performing Lab: Notes/Report: Test performed by [facility] [address] [place] [address] , [address], [place] [address] Theron Wang MD, [place] CLIA: [id number] Sodium 140 135-145 mmol/L Potassium 4.1 3.5-5.3 [...] Interpretation:Normal Performing Lab: Notes/Report: Test performed by [facility] [address] [place] [address] , [address], [place] [address] Theron Wang MD, [facility] CLIA: [id number] Erythrocyte Sedimentation Rate (ESR), Automated 12 <31 mm/hr P-TSH Reviewed date:10/22/2024 03:53:57 PM Interpretation:Normal Performing Lab: Notes/Report: Test performed by [facility] [address] [place] [address] , [address], [place] [address] Theron Wang MD, [place] CLIA: [id number] TSH 1.86 0.43-5.25 mU/L Antinuclear Antibodies (SARAH) Result Note Reviewed date:10/22/2024 03:53:57 PM Interpretation:Normal Performing Lab: Notes/Report: Test performed by [facility] [address] [place] [address] , [place] [address] Theron Wang MD, [place] CLIA: [id number] Antinuclear Antibodies (SARAH) Result Note SEE COMMENT For positive Autoantibodies, please refer to the interpretive chart here: [email or web address] Ultrasound : liver Reviewed date:05/18/2025 04:40:18 PM Interpretation: Performing Lab: Notes/Report: Reason For Referral No Information Medications Medication [...] W/U Status Risk Notes Problem Abnormal mammogram (062730778) ABNORMAL MAMMOGRAM (793.80) Active confirmed Problem Abnormal cervical smear (163676449) abnormal pap smear (795.02) Active confirmed Problem Menopausal and perimenopausal disorder (N95.9) Active confirmed Problem Chronic pain (43801737) Other chronic pain (G89.29) Active confirmed Problem Arthralgia of the ankle and/or foot (984324615) Pain in right ankle and joints of right foot (M25.571) Active confirmed Problem Fibrocystic breast changes (22501987) Diffuse cystic mastopathy of right breast (N60.11) Active confirmed Problem C-reactive protein abnormal (226102369) Elevated C-reactive protein (CRP) (R79.82) Active confirmed Problem Neuropathy (864094143) Neuropathy (G62.9) Active confirmed Problem Syncope and collapse (367687768) Syncope, unspecified syncope type (R55) Active confirmed Problem Pain in pelvis (14062075) Pelvic pain (R10.2) Active confirmed Problem Acute pain of left knee (M25.562) Active confirmed Problem Backache (087262678) Upper back pain on left side (M54.9) Active confirmed Problem Gynecological examination normal (563590308915958) Well woman exam with routine gynecological exam (Z01.419) Active confirmed Problem Irritable bowel syndrome (03106260) Irritable bowel syndrome with both constipation and diarrhea (K58.2) Active confirmed Problem Cervical cyst (74707771) Cervical cyst (N88.8) Active confirmed Problem Fibrocystic breast changes (66587347) Fibrocystic breast disease (FCBD), unspecified laterality (N60.19) Active confirmed Vital Signs Heart Rate 70 /min 05/13/2025 Blood pressure diastolic 76 mm Hg 05/13/2025 Height 55 in 05/13/2025 Blood pressure systolic 132 mm Hg 05/13/2025 Weight 154.8 lbs 05/13/2025 BMI 35.98 kg/m2 05/13/2025 Encounters Encounter Location Date Provider Diagnosis [facility] [address] [place] [id number] 10/15/2024 Chriss Fuentes Urticaria L50.9 ; Livedo reticularis R23.1 and Pruritic dermatitis L30.8 [facility] [address] [place] [id number] 11/26/2024 Chriss Fuentes Skin rash R21 and Irritable bowel syndrome with both constipation and diarrhea K58.2 [facility] [address] [place] [id number] 04/29/2025 Mayda Crowdy Rash R21 ; Myalgia M79.10 ; Body aches R52 and Left flank mass R19.09 [facility] [address] [place], [place] [id number] 05/13/2025 Mayda Crowdy Rash R21 ; Myalgia M79.10 ; Body aches R52 ; Left flank mass R19.09 ; Elevated LFTs R79.89 and Elevated C-reactive protein (CRP) R79.82 [facility] [address] [place], [place] [id number] 05/12/2025 Mayda Crowdy [facility] [address] [place], [place] [id number] 12/06/2024 Chriss Fuentes [facility] [address] [place], [place] [id number] 05/04/2025 Jerry Isaac [facility] [address] [place], [place] [id number] 05/06/2025 Mayda Munson [facility] [address] [place], [place] [id number] 05/18/2025 Mayda Munson Assessments Encounter Date Diagnosis (ICD Code) Assessment Notes Treatment Notes Treatment Clinical Notes Section Notes 11/26/2024 Irritable bowel syndrome with both constipation and diarrhea (ICD-10 - K58.2) Konsyl and Align recommended 11/26/2024 Skin rash (ICD-10 - R21) 05/13/2025 Rash (ICD-10 - R21) 05/13/2025 Myalgia (ICD-10 - M79.10) 04/29/2025 Rash (ICD-10 - R21) 04/29/2025 Myalgia (ICD-10 - M79.10) 10/15/2024 Urticaria (ICD-10 - L50.9) 10/15/2024 Livedo reticularis (ICD-10 - R23.1) 10/15/2024 Pruritic dermatitis (ICD-10 - L30.8) 04/29/2025 Body aches (ICD-10 - R52) 05/13/2025 Body aches (ICD-10 - R52) 05/13/2025 Left flank mass (ICD-10 - R19.09) 04/29/2025 Left flank mass (ICD-10 - R19.09) 05/13/2025 Elevated LFTs (ICD-10 - R79.89) 05/13/2025 Elevated C-reactive protein (CRP) (ICD-10 - R79.82) Plan Of Treatment Pending Test Test Name Order Date H-TSH 04/18/2023 H-VITAMIN D 04/18/2023 H-Lipid Panel 04/18/2023 H-CMP 04/18/2023 H-VITAMIN B12 04/18/2023 P-SARAH 10/15/2024 Insurance Providers Payer Name Payer Address Payer Phone Subscriber Number Group Number Insured Name Patient Relationship to Insured Coverage Start Date Coverage End Date [employer] [address] [place] [address] [id number] Annia Gray Self - patient is the insured Medical (General) History Medical History History ICD Code 10/06/08 PAP neg abnormal PAP showing possible high grade intraepithelial lesion 01/27/14 ECC negative for lesions 04/06/14 Surgical History Surgery Date(Month/Year) plate taken out of ankle 02/2013 colonoscopy 07/25/2020 Hospitalization History Reason Date(Month/Year) flu
--- OUTSIDE RECORDS SUMMARY | 2025-05-26 22:59 | XMS_ITS | Clinical Summary ---
Author Organization [facility] lin Address [address] [place] [address] Care Team Providers Care Pm Head Cook Name Role Phone Unavailable Primary Care Provider Unavailabl e Social History Tobacco Use Types Packs/Day Years Used Date Smoking Tobacco: Never Assessed Comments Unknown Sex and Gender Information Value Date Recorded Sex Assigned at Not on file Legal Sex Female 9:06 AM EST Gender Identity Not on file Sexual Orientation Not on file Plan of Treatment Not on file Medical Devices Not on file
[2025-05-26 23:00] VITALS: BP 151/72; PULSE 97; O2SAT 98
[2025-05-26 23:05] LABS: Coronavirus 19, PCR Not Detected (NotDetected); Influenza A, PCR Not Detected (NotDetected); Influenza B, PCR Not Detected (NotDetected)
[2025-05-26] MEDS: 0.9 % SODIUM CHLORIDE 1000ML 1,000 ML 999 ML IV (23:27)
[2025-05-26] MEDS: METHOCARBAMOL 500MG TABLET 1000 MG PO (23:28)
[2025-05-26] MEDS: ACETAMINOPHEN 500MG TAB 1000 MG PO (23:28)
[2025-05-26] MEDS: KETOROLAC 30MG/ML VIAL 30 MG IV (23:31)
[2025-05-26 23:32] LABS: Hematocrit 41.1 % (37.0-47.0); Hemoglobin 13.3 g/dL (12.2-16.2); Immature Granulocytes % 0.2 %; Mean Corpuscular HGB Conc 32.4 g/dL (31.8-35.4); Mean Corpuscular Hemoglobin 27.7 pg (27.0-31.2); Mean Corpuscular Volume 85.4 fl (81-99); Nucleated Red Blood Cells % 0 %; Platelet Count 230 K/mm3 (142-424); Red Blood Count 4.81 M/mm3 (4.20-5.40); Red Cell Distribution Width-SD 43.7 fL; White Blood Count 11.2 K/mm3 (4.8-10.8)
[2025-05-26] MEDS: PROCHLORPERAZINE 10MG/2ML VIAL 10 MG IV (23:32)
[2025-05-26 23:40] LABS: Creatine Kinase 77 U/L (30-135)
[2025-05-26 23:41] LABS: Alanine Aminotransferase 295 U/L (12-78); Albumin Level 4.8 g/dl (3.5-5.0); Albumin/Globulin Ratio 1.5 (1.1-1.8); Alkaline Phosphatase 86 U/L (38-126); Anion Gap 12.9 mEq/L (5-15); Aspartate Amino Transferase 171 U/L (14-36); Bilirubin,Total 0.7 mg/dl (0.2-1.3); Blood Urea Nitrogen 13 mg/dl (7-17); Calcium 9.1 mg/dl (8.4-10.2); Carbon Dioxide 22 mmol/L (22.0-30.0); Chloride 104 mmol/L (98-107); Creatinine Clearance Estimated 83 mL/min (50-200); Creatinine,Serum 0.80 mg/dl (0.52-1.04); Estimated Glomerular Filt Rate 74 ml/min (>60); GFR (African American) 89 ML/MIN (>60); Globulin 3.2 g/dL (1.3-3.2); Glucose 112 mg/dl (74-100); Magnesium 1.9 mg/dl (1.6-2.3); Potassium 3.9 mmoL/L (3.5-5.1); Sodium 135 mmol/L (136-145); Total Protein,Serum 8.0 g/dl (6.3-8.2)
[2025-05-26 23:46] LABS: C-Reactive Protein 30.2 mg/L (0-4)
[2025-05-26 23:51] LABS: Microscopic, Urine URINE MICROSCOPIC (MICROSCOPIC)
[2025-05-26 23:52] LABS: Bilirubin,Urine Negative (Negative); Color,Urine YELLOW (Yellow); Glucose,Urine (UA) Negative (Negative); Ketones,Urine Negative (Negative); Leukocyte Esterase,Urine Negative (Negative); PH,Urine 6.0 (5.0-8.5); Protein,Urine Negative (Negative); Specific Gravity, Urine <= 1.005 (1.005-1.030); Urobilinogen,Urine 0.2 EU/dl (0.2)
[2025-05-26 23:56] LABS: Bacteria,Urine Trace /lpf; Mucus,Urine 1+ /lpf; Squamous Epithelial Cell,Urine Occasional #/hpf (0-5); WBC,Urine Occasional #/hpf (0-3)
[2025-05-26 23:56] LABS: Total Cells Counted 100
[2025-05-27 00:47] VITALS: BP 129/69; PULSE 74; RESP 14; TEMP 36.6; O2SAT 97
[2025-05-27 02:29] LABS: Hepatitis C Ab Qual. W/ RFX NEGATIVE (Negative)
== END 2025-05-27 00:49 | disposition home or self-care (01) ==
PROVIDERS: Emergency Provider Emergency Medicine; PCP Family Medicine
DX: M79.10 Myalgia, unspecified site (principal); M19.90 Unspecified osteoarthritis, unspecified site; R51.9 Headache, unspecified; K52.9 Noninfective gastroenteritis and colitis, unspecified; R94.5 Abnormal results of liver function studies; Z88.2 Allergy status to sulfonamides
CPT/HCPCS: 80053; 81001; 82550; 83735; 85007; 85025; 85027; 85651; 86140; 86803; 87389; 87636; 96361; 96374; 96375; 99284; J0780; J1885; J7030